=== PATIENT | male | born 1965 | race Caucasian/White ===

== ENCOUNTER 2024-09-03 23:03 | Inpatient (IN) | payer OTHER, SELFPAY ==
[2024-09-03 20:41] VITALS: BMI 27.0
[2024-09-03 20:43] VITALS: BP 135/75
[2024-09-03 21:09] LABS: % Basophils 0.7 % (0-2); % Eosinophils 0.1 % (0-6); % Immature Granulocytes 1.8 % (0-0.5); % Lymphocytes 11.4 % (20.5-51.1); % Monocytes 7.7 % (1.7-9.3); % Neutrophils 78.3 % (42.2-75.2); Absolute Basophils 0.2 10^3/uL (0-0.2); Absolute Immature Granulocytes 0.4 10^3/uL (0-0.05); Absolute Lymphocytes 2.6 10^3/uL (1.2-3.4); Absolute Monocytes 1.8 10^3/uL (0.1-0.6); Absolute Neutrophils 17.8 10^3/uL (1.4-6.5); Hematocrit 49.1 % (39.0-52.0); Hemoglobin 16.3 g/dL (13.0-18.0); Mean Corp Hgb Conc. 33.2 g/dL (33.0-37.0); Mean Corpuscular Hgb 30.7 pg (27.0-31.0); Mean Corpuscular Volume 92.5 fL (80.0-94.0); Mean Platelet Volume 10.8 fL (7.4-10.4); Nucleated Red Blood Cells % 0 % (-); Platelet Count 320 10^3/uL (130-400); Red Blood Cell Count 5.31 10^6/uL (4.70-6.10); Red Cell Dist. Width 12.5 % (11.5-14.5); White Blood Cell Count 22.8 10^3/uL (4.8-10.8)
[2024-09-03 21:12] LABS: Glucose - Point of Care 501 mg/dl (70-99)
[2024-09-03 21:21] VITALS: BP 139/79
[2024-09-03 21:22] LABS: ALT (SGPT) 21 U/L (0-50); AST (SGOT) 24 U/L (17-59); Alkaline Phosphatase 180 U/L (38-126); Blood Urea Nitrogen 19 mg/dl (9-20); Calcium 9.2 mg/dl (8.4-10.2); Carbon Dioxide < 5 mmol/L (22-30); Chloride 101 mmol/L (98-107); Glucose 462 mg/dl (70-99); Potassium 5.1 mmol/L (3.5-5.1); Sodium 133 mmol/L (135-145); Total Bilirubin 0.8 mg/dl (0.2-1.3); Total Protein 7.8 g/dl (6.3-8.2); eGFR 58.26
--- NOTE | 2024-09-03 21:27 | ED.GENMED ---
History of Present Illness
General
Chief Complaint: Blood Sugar Problem
Source: patient
Exam Limitations: none
Time Seen by Provider: 09/03/24 21:18
Nursing documentation reviewed up to this point in time: agreed with
History of Present Illness
History of Present Illness:
59-year-old male with a past medical history of insulin-dependent diabetes presents to the emergency room for evaluation of labored breathing and dizziness. Patient lives in [place] and flew here Monday for job orientation for a new
job. He says that he was feeling generally unwell shortly after his arrival and for this reason he says he has not been using his insulin since he arrived�has missed 2 days worth of insulin. He says his usual regimen is 22 units of long-acting
insulin at night and 12 units with meals. He says that this morning he woke up and he started to feel like his breathing was labored while he was in the shower; he says he went to lay down and he felt a bit better. In the afternoon his labored
breathing returned started to get worse. He says he has had some associated nausea. He denies any chest pain. He has had some mild right sided abdominal pain. Although he has nausea denies any vomiting. Denies any loose stools. He denies any
cough or fevers recently. He denies any other complaints. He does note that he has been admitted twice in the past for high blood sugars/DKA most recently was 2 years ago he says.
Review of Systems
Review of Systems
All Other Systems: ROS reviewed and negative except as documented in HPI and ROS
Constitutional: Reports fatigue; Denies fever or chills
EENT: Denies sore throat
Respiratory: Reports trouble breathing; Denies cough
Cardiac: Denies chest pain
ABD/GI: Reports abdominal pain and nausea; Denies vomiting or diarrhea
: Denies dysuria or flank pain
Musculoskeletal: Denies neck pain or back pain
Neurological: Reports dizzy; Denies headache
Phy Exam
Physical Exam
Physical Exam:
General: Patient is laying in bed, appears anxious
Head: Normocephalic, atraumatic
Eyes: Conjunctiva normal, sclera anicteric
Throat: Airway intact, dry mucous membranes
Neck: Trachea midline, supple without meningismus
Lungs: Clear to auscultation bilaterally, no wheezing, rales, rhonchi; patient does have tachypnea but no hypoxia
Heart: Tachycardia with regular rhythm, no murmurs, gallops, or rubs
Abd: Soft, non distended, mildly tender in the right abdomen-upper and lower abdomen; no masses, no peritoneal signs
Neuro: No gross deficits
Skin: no rash
Extremities: No edema in extremities, equal pulses in all extremities
Scores
Heart Failure Risk
Heart Failure Risk Score: Not Applicable
Heart Score for Chest Pain Patients
STEMI patient?: Not applicable
Withdrawal Assessment of Alcohol
Withdrawal Assessment Completed?: Not applicable
Course
Orders/Labs/Results
Orders:
Orders
09/03/24 20:49
Electrocardiogram (*1) Urgent
Reason for Study: Tachycardia
EKG- Treatment ONCE
09/03/24 20:58
B-Hydroxybutyrate Urgent
Comment: ADD ON
Complete Blood Count/With Diff Urgent
Comprehensive Metabolic Panel Urgent
09/03/24 21:07
Accucheck Once [Bedside Glucose Monitoring-ONCE] As Directed
09/03/24 21:15
Add On- LAB Urgent
Tests Added?: b hydroxybutrate
09/03/24 21:19
Urinalysis Reflex To Culture Urgent
09/03/24 21:20
Electrocardiogram (*1) Urgent
Reason for Study: Bradycardia / Tachycardia
0.9% Sodium Chloride 1000 ml [Nss] 1,000 ml IV BOLUS
Lactated Ringers [Lr] 1,000 ml IV BOLUS
09/03/24 21:21
CR Chest Portable - 1 View Urgent
Comment:
Reason For Exam: sob
Reason Study Needs to be Portable: Unable to Transport
09/03/24 21:25
CT Abd/pelvis W Iv Cont Urgent
Comment:
Reason For Exam: right sided abd pain, muliple SIRS, DKA
Basic Metabolic Panel Q2H
COVID-19 Antigen Urgent
Source: Nasal Swab
Lipase Urgent
Venous Blood Gas Urgent
%Oxygen/Room Air: 100
Blood Culture Q30M
WALE Source: Blood/Venous
Specimen Description:
Influenza A+B Rapid Molecular Urgent
WALE Source: Nasal Swab
Specimen Description:
09/03/24 21:37
Bedside Glucose- Treatment Q1H
IV Insert/Care/Rem.- Treatment PRN
Insulin Human Regular [Novolin R] 9 units IV NOW STA
09/03/24 21:43
Reg Insulin 100 Units/100 ml [Novolin R Insulin Infusion] 100 units in 100 ml IV NOW
09/03/24 21:57
Cefepime HCl [Maxipime] 1,000 mg IV NOW STA
Lactated Ringers [Lr] 1,000 ml IV BOLUS
09/03/24 22:10
Vancomycin [Vancocin] 2,000 mg 0.9% Sodium Chloride 500 ml [Nss] 500 ml IV NOW
09/03/24 22:15
Sodium Bicarbonate 100 meq Sterile Water For Inj [Sterile Water For Injection 500 ml] 400 ml IV ONCE
09/03/24 22:28
Admit/Transfer Patient As Directed
Co-Sign Provider:
Level of Care: Inpatient admission
Assign to:: ICU
Physician / Group: hospitalist
Diagnosis: DKA
Reason for Hospitalization: DKA
Expected length of stay greater than two midnights?: Yes
ELOS- Estimated Length of Stay in days: 2
I certify the patient meets the requirements for IP care: Yes
PRN Pain Medication Management As Directed
May give lesser potent ordered pain med per pt: Yes
preference::
Protocol:: Medication orders for pain may be administered in a
manner that supports deferring to patient preference
when the pt is:
- Requesting an ordered lesser potent pain medication.
Least to most potent pain medications are defined
as: acetaminophen < NSAID < tramadol < opioids
(morphine, oxycodone, hydromorphone).
- Requesting a lesser dose of the same medication IF
ORDERED.
- Requesting a less intrusive route of administration
if both routes are prescribed by the provider (PO <
IV).
09/03/24 22:30
Code Status As Directed
Resuscitation Status: Full Code
09/03/24 22:44
Electrocardiogram (*1) Urgent
Reason for Study: Tachycardia
EKG- Treatment ONCE
09/03/24 22:54
Venous Blood Gas Urgent
%Oxygen/Room Air: 100
Blood Culture Q30M
WALE Source: Blood/Venous
Specimen Description:
09/03/24 22:57
PTT Urgent
Prothrombin Time Urgent
09/03/24 22:59
Sterile Water [Sterile Water For Injection] 10 ml .ROUTE .STK-MED ONE
09/03/24 23:03
Heparin 4,000 units IV NOW STA
Pharmacy Request to Place See Dose Instructions PO NOW STA
Discontinue all Active Warfarin orders?: Yes
Nursing to Place Non Medication Order As Directed
Physician Order: PTT 6 hours after initial start of Heparin infusion
09/03/24 23:15
Heparin 58245 Units/250 ml 25,000 units in 250 ml IV PER PROTOCOL
Weight to be used for heparin protocol in kilograms (kg):: 90.3
Protocol:: Cardiac Tx/Acute Coronary
PTT Goal Range to be used:: PTT 73 to 111 seconds
Order type:: Initial
INITIAL Infusion Dose (UNITS/KG/hr) & then follow protocol:: 15 units/kg/hr
Infusion Dose in UNITS/hr & then follow protocol (UNITS/hr):: 1,350
INFUSION RATE in mL/hr & then follow protocol (mL/hr):: 13.5
PTT less than or equal to 64 seconds:: Increase rate by 200 units/hr (+ 2 mL/hr)
PTT 64.1 to 72.9 seconds:: Increase rate by 100 units/hr (+ 1 mL/hr)
PTT 73 to 111 seconds:: Target Range. No change in rate.
PTT 111.1 to 130.9 seconds:: Decrease rate by 100 units/hr (- 1 mL/hr)
PTT 131 to 199.9 seconds:: HOLD for 1 hr. Then decrease rate by 200 units/hr (- 2 mL/hr)
PTT greater than or equal to 200 seconds:: HOLD for 2 hrs & Notify Provider. Then decrease by 200 units/hr (-
2 mL/hr)
Lab follow-up:: Each change, PTT q6h until 2 consecutive are therapeutic. Then PTT
daily.
09/03/24 23:45
Basic Metabolic Panel Q2H
Pharmacy Request to Place See Dose Instructions IV DIRECTED
09/04/24 01:45
Basic Metabolic Panel Q2H
Abnormal Lab Results
09/03/24 09/03/24 09/03/24
20:58 21:11 21:25
WBC 22.8 H 10^3/uL
(4.8-10.8)
MPV 10.8 H fL
(7.4-10.4)
Abs Immat Gran (auto) 0.4 H 10^3/uL
(0-0.05)
Absolute Neuts (auto) 17.8 H 10^3/uL
(1.4-6.5)
Absolute Monos (auto) 1.8 H 10^3/uL
(0.1-0.6)
Immature Gran % 1.8 H %
(0-0.5)
Neutrophils % 78.3 H %
(42.2-75.2)
Lymphocytes % 11.4 L %
(20.5-51.1)
VBG pH < 6.80 L*
(7.32-7.43)
VBG pCO2 30 L mmHg
(35-48)
VBG pO2 58 H mmHg
(30-50)
VBG HCO3
Sodium 133 L mmol/L 132 L mmol/L
(135-145) (135-145)
Carbon Dioxide < 5 L* mmol/L < 5 L* mmol/L
(22-30) (22-30)
Creatinine 1.4 H mg/dL 1.4 H mg/dL
(0.7-1.3) (0.7-1.3)
Glucose 462 H* mg/dl 505 H* mg/dl
(70-99) (70-99)
Alkaline Phosphatase 180 H U/L
(38-126)
Lipase 315 H U/L
(23-300)
B-Hydroxybutyrate > 9.0 H mmol/L
(0.02-0.27)
POC Glucose 501 H* mg/dl
(70-99)
09/03/24 09/03/24 09/03/24
21:48 22:54 22:57
WBC
MPV
Abs Immat Gran (auto)
Absolute Neuts (auto)
Absolute Monos (auto)
Immature Gran %
Neutrophils %
Lymphocytes %
VBG pH 6.82 L*
(7.32-7.43)
VBG pCO2 27 L mmHg
(35-48)
VBG pO2 62 H mmHg
(30-50)
VBG HCO3 4.4 L mmol/L
(22-27)
Sodium
Carbon Dioxide
Creatinine
Glucose
Alkaline Phosphatase
Lipase
B-Hydroxybutyrate
POC Glucose 502 H* mg/dl 420 H mg/dl
(70-99) (70-99)
09/03/24 20:58
09/03/24 21:25
Vital Signs
Initial and Last Documented VS:
Initial Vital Signs
Temp Pulse Resp BP Pulse Ox
36.4 C 114 30 135/75 100
09/03/24 20:43 09/03/24 20:43 09/03/24 20:43 09/03/24 20:43 09/03/24 20:43
Last Documented Vital Signs
Temp Pulse Resp BP Pulse Ox
36.4 C 107 23 130/73 100
09/03/24 20:43 09/03/24 22:00 09/03/24 22:00 09/03/24 22:00 09/03/24 22:00
MDM/Problems Addressed
Differential Diagnosis Includes:
Concern for DKA�could be secondary to noncompliance or triggered by infection such as pneumonia, UTI, intra-abdominal infection, viral syndrome
MDM/Problems Addressed:
59-year-old male presents for labored breathing and dizziness in the setting of recent malaise for the past few days. He has been noncompliant with his insulin for the past 2 days but he says that he was noncompliant because he was feeling unwell.
He arrives to us tachypneic and tachycardic but normal pulse ox, afebrile, normal blood pressure. His Accu-Chek was greater than 500 on arrival. Brought back to room will place an IV send labs including a CBC and a CMP, lactate and blood cultures.
Check urinalysis. Will check beta hydroxybutyrate, venous blood gas. Check an EKG. Check a chest x-ray. Will send for a CT abdomen pelvis. Will provide IV fluids. Monitor closely reassess after the above.
Initial labs reviewed: CBC does show leukocytosis of 22.8 which could be from hemoconcentration but we will need to follow his infectious workup. Given acuity of illness we will cover with empiric antibiotics. His CMP shows anion gap metabolic
acidosis�anion gap is 27; potassium 5.1. Glucose 462. Will provide insulin bolus and start infusion�with potassium greater than 5 no potassium supplementation needed at this point but will need to follow closely. I did review his chest x-ray
shows no acute disease on my review. EKG shows sinus tachycardia. Plan for admission pending rest of ER workup.
Patient's venous blood gas came back with significant acidosis pH less than 6.8�will provide sodium bicarbonate given this finding. I did discuss the case with the hospitalist with some workup pending to facilitate admission for this critical ICU
patient.
Patient noted to have some increased tachycardia and heart rate increased to 130s appears irregular on the monitor. Repeat EKG confirms atrial fibrillation. Patient denies known history of A-fib or any other cardiac issues. Discussed with
hospitalist at bedside�heart rate only mildly elevated and given his hypovolemia hesitant to be aggressive with rate control for fear of dropping blood pressure. Will allow rate to ride on the high side for now hold on rate control medications.
Will plan for heparinization pending CT results.
CT reviewed no acute pathology noted. Started heparin infusion for atrial fibrillation. Hospitalist updated. Admitted to ICU.
Chronic conditions affecting care:
Insulin-dependent diabetes
Acute Exacerbation and/or Progression of Chronic Illness:
Acute hyperglycemia treated as above
Acute Exacerbation and/or Progression of Chronic Illness: DM
*Radiology
Radiology exam reviewed: preliminary read by ED provider and radiology read reviewed
*Pulse Oximetry
Patient hypoxic: no
*EKG
Interpreted by ED Provider?: Yes
Heart Rate: 112
Rate: tachycardiac
Rhythm: sinus and sinus tachycardia
Luck: normal axis
Interval: normal interval
QRS Pattern: low voltage
Ischemia: non-specific ST changes
*Critical Care Note
Total Time (30-74mins, 75-104mins- exclusive of procedures): 47
comment:
Critical care statement: A total of 47 minutes of critical care time was provided for this patient. This includes management of unstable vital signs, evaluation of the patient at bedside, frequent reassessment, discussion with
consultants/hospitalist, and review of pertinent medical records. This time was separate from time utilized to perform any aforementioned documented procedures
Data Reviewed
Source: patient
Patient Management
Discussion with other providers: Hospitalist (Discussed with hospitalist)
Escalation/DeEscalation of care consider admission/obs:
Admission indicated
ED Attending Note
-
Portions of this chart may have been created with voice recognition software.� Occasional wrong word or��sound alike� substitutions may have occurred due to the inherent limitations of voice recognition software.
Discharge Plan
Departure
Patient Disposition: Admit
Date of Disposition: 09/03/24
Time of Disposition: 21:58
Admit to doctor: Jennifer
Presentation/result/management discussed w/ accepting MD/DO: Hospitalist
Discharge Problem:
Diabetic ketoacidosis, Atrial fibrillation with RVR
Interventions
Interventions:
*Risk Screen - Suicide Last Done: 09/03/24 20:48
*General Assessment Last Done: 09/03/24 20:48
*Neglect/Abuse Screening Last Done: 09/03/24 20:48
[2024-09-03] MEDS: NSS 1000 IV (21:35)
[2024-09-03] MEDS: LR 1000 IV ×2 (21:36→23:03)
[2024-09-03 21:47] LABS: Venous Blood Gas O2 Sat % 85.9 %; Venous Blood Gas pCO2 30 mmHg (35-48); Venous Blood Gas pO2 58 mmHg (30-50)
[2024-09-03] MEDS: NOVOLIN R 9 UNITS IV (21:47)
[2024-09-03 21:49] LABS: Glucose - Point of Care 502 mg/dl (70-99)
[2024-09-03 21:51] LABS: Venous Blood Gas pH < 6.80 (7.32-7.43)
[2024-09-03 21:56] LABS: Blood Urea Nitrogen 20 mg/dl (9-20); Calcium 8.7 mg/dl (8.4-10.2); Carbon Dioxide < 5 mmol/L (22-30); Chloride 99 mmol/L (98-107); Estimated Creatinine Clearance 63 ml/min; Glucose 505 mg/dl (70-99); Lipase 315 U/L (23-300); Sodium 132 mmol/L (135-145); eGFR 58.26
[2024-09-03] MEDS: NOVOLIN R INSULIN INFUSION 100 IV (21:57)
[2024-09-03 22:00] VITALS: BP 130/73
[2024-09-03 22:00] LABS: COVID-19 Antigen Negative (Negative)
--- NOTE | 2024-09-03 22:12 | HPS.HSE ---
Family Physician
-
Family Physician:
Chief Complaint
-
There for breathing, DKA
History of Present Illness
This is a 59-year-old male with past medical history of insulin-dependent diabetes, bipolar, anxiety, unknown others presenting to the emergency department for abnormal blood sugar and breathing difficulty.
Patient is visiting [place] for a work conference. He apparently arrived 2 days ago on Monday. On arrival he felt somewhat ill and had some malaise and some nausea. He had decreased appetite and ambulate eating. So he decided not to take
his insulin. He currently cannot tell me exactly the amount of insulin he uses but he is on evening long-acting some daytime insulin. He has not taken his insulin since Monday due to with his ongoing malaise. Last night he felt very weak and
tired he went to sleep he felt slightly better. When he woke up this morning if he felt dizzy and lightheaded when he attempted to shower. He noticed that he was having heavy breathing and he decided to come to the emergency department.
Take did not have any zeke fevers or chills. He said he was not having diarrhea now but apparently had an episode of diarrhea previously. He has no cough. He denies having any headache. Denies having any urinary symptoms. He was complaining of
some flank pain but denies dysuria.
On arrival in the emergency department he was tachycardic to the 110s, afebrile, blood pressure was 130/70 and was satting 100% on room air. ECG shows sinus tachycardia without any acute ST or T wave changes. White count was 22.8 hemoglobin was 16
and platelet count was normal. Electrolytes notable for a sodium of 132 potassium 5.0. Bicarb was less than 5. Creatinine was 1.4 BUN 20. His glucose was 505. Anion gap was 27, pH was 6.8 with a pCO2 of 30. Lipase was slightly elevated at 315.
X-ray without infiltrates. CTAP pending.
IV fluids including bicarb 100 meq, LR 1L. NS 1 L.
Cefepime and Vanc empirically
Medical History
Past Medical History
Past Medical History: Reports IDDM and Psychiatric (Bipolar disorder)
Past Surgical History: Reports None
Social History
Tobacco: Non-smoker
Alcohol: Occasional
Drug: None
Personal:
Living: Other (visiting)
Employment: Employed
Family History
Family History: Not pertinent
Allergies / Home Medications
Allergies reflects when Allergies were last updated in [facility].
Home Medications with original date entered in [facility]
Allergy/Medication List:
Allergies
Allergy/AdvReac Type Severity Reaction Status Date / Time
amoxicillin Allergy Swelling Verified 09/03/24 20:49
Penicillins Allergy Swelling Verified 09/03/24 20:49
Unknown medications at this time
Review of Systems
-
History Source: Patient
Constitutional: Reports Fatigue
EENT: Reports No Symptoms
Respiratory: Reports Trouble Breathing
Cardiac: Reports No Symptoms
Abdomen/GI: Reports Abdominal Pain
: Reports Flank Pain; Denies Dysuria, Frequency, Incontinence, Difficulty Voiding or Urgency
Musculoskeletal: Reports Muscle Pain
Skin: Reports No Symptoms
Neurological: Reports No Symptoms
Endocrine: Reports No Symptoms
Hematologic/Lymphatic: Reports No Symptoms
Psych: Reports No Symptoms
Physical Exam
Vital Signs
Vital Signs
Temp Pulse Resp BP Pulse Ox
97.6 F 114 30 135/75 100
09/03/24 20:43 09/03/24 20:43 09/03/24 20:43 09/03/24 20:43 09/03/24 20:43
Physical Exam
General: Well Developed, Well Nourished and Appears in Distress
HEENT: NormoCephalic, Anicteric, Moist mucous membranes and Atraumatic
Respiratory: Clear and Accessory Resp Muscle Use
Cardiac: S1/S2 and Tachycardia
Breast: Deferred by me
GI: Soft and Non Distended (firm)
Rectal: Deferred by Provider
Genito-urinary: Deferred by me
Musculoskeletal: No Clubbing, No Cyanosis and No Edema
Skin: Warm
Neuro: AO x 3
Hematologic/Lymphatic: No Lymphadenopathy
Psych: Agitated
Laboratory Results
-
09/03/24 20:58
Laboratory Results
Total Bilirubin 0.8 mg/dl (0.2-1.3) 09/03/24 20:58
AST 24 U/L (17-59) 09/03/24 20:58
ALT 21 U/L (0-50) 09/03/24 20:58
Alkaline Phosphatase 180 U/L (38-126) H 09/03/24 20:58
Lipase 315 U/L (23-300) H 09/03/24 21:25
Data Reviewed
-
Diagnostic Radiology: Image Personally Visualized and interpreted
Medical Tests (Nuc Med, Echo, EKG etc): Image Personally Visualized and interpreted
Lab Data: Labs Reviewed by me
Old Records: Reviewed
Impression/Plan
-
IMPRESSION:
59 y.o Male with past medical history of insulin-dependent diabetes who comes into the emergency department in DKA. Has missed 2 days of insulin. Has not have anything to eat in at least 24 hours. He is dehydrated tachypneic and tachycardic.
X-ray is clear. COVID and influenza are negative. UA is pending. CT of the abdomen pelvis is pending. He has leukocytosis which is currently unexplained by any infectious source. Suspect DKA due to lack of insulin as the primary etiology.
PLAN:
1. DKA - Severe DKA, AG 27, bicarb undetectable, Glucose 500. bHB pending. U/A pending. Dehydrated. K 5.1. pH 6.8.
- admit to icu
- s/p LR/NS and bicarb in ED
- insulin gtt protocoll
- IV NS at 200 ml/hr + 20 K
- blood glucose q 1, bmp q 4
- repeat gas in 2 hours
- NPO for now
2. Leukocytosis - Unclear source. No fever. Clear Xray. No localizing symptoms.
- blood cx
- u/a urine cx
- ct/a/p pending
- check mrsa swab, [place] urinary ag
- continue cefepime for now
3. BIPOLAR
- will follow up with home meds when patient more stabilized
4. Renal insufficiency. Cr 1.4. - likely prerenal or even at baseline, follow cr for now
5. Lipase elevation - Possible pancreatitis. No etoh
- npo for now
- CT a/p pending
- if stones, will change abx to zosyn for now
6. AFIB RVR - Went into afib after arrival, no prior h/o afib
- will give fluids and treat underlying CKD
- hold diltiazem for now unless rates in the 140s persistently
- with diabetes and htn, likely meets ac criteria - will start heparin for now
- echo in am
- cardiology consult
DVT PPX - lovenox sq
Code status - full code
[2024-09-03 22:25] LABS: B-Hydroxybutyrate > 9.0 mmol/L (0.02-0.27)
[2024-09-03 22:33] VITALS: BP 125/83
[2024-09-03] MEDS: VANCOCIN 540 MG IV (22:39)
[2024-09-03 22:58] LABS: Glucose - Point of Care 420 mg/dl (70-99)
[2024-09-03 23:01] VITALS: BP 130/72
[2024-09-03] MEDS: MAXIPIME 1000 MG IV (23:01)
[2024-09-03 23:02] LABS: Venous Blood Gas B.E. -29.4 mmol/L (-4 to +4); Venous Blood Gas HCO3 4.4 mmol/L (22-27); Venous Blood Gas pCO2 27 mmHg (35-48); Venous Blood Gas pO2 62 mmHg (30-50)
[2024-09-03 23:05] LABS: Venous Blood Gas pH 6.82 (7.32-7.43)
[2024-09-03] MEDS: SODIUM BICARBONATE 500 MEQ IV (23:10)
[2024-09-03 23:14] LABS: INR 1.19; PT 15.4 Sec (11.4-14.6)
[2024-09-03 23:15] LABS: APTT 32.4 Sec (23.4-35.0)
[2024-09-03 23:51] LABS: Troponin I < 0.012 ng/ml
[2024-09-03 23:52] LABS: Glucose - Point of Care 297 mg/dl (70-99)
[2024-09-04] VITALS (25 sets, daily range): BP systolic 109–155; BP diastolic 62–90; BMI 26.8
[2024-09-04] MEDS: HEPARIN 4000 UNITS IV (00:15)
[2024-09-04] MEDS: HEPARIN 25000 UNITS/250 ML IV (00:15)
[2024-09-04 00:43] LABS: Blood Urea Nitrogen 21 mg/dl (9-20); Calcium 6.6 mg/dl (8.4-10.2); Carbon Dioxide 19 mmol/L (22-30); Chloride 96 mmol/L (98-107); Estimated Creatinine Clearance 80 ml/min; Glucose 216 mg/dl (70-99); Potassium 3.8 mmol/L (3.5-5.1); Sodium 135 mmol/L (135-145); eGFR > 60.00
[2024-09-04 00:58] LABS: Glucose - Point of Care 137 mg/dl (70-99)
[2024-09-04] MEDS: D5/0.45%NSS with KCL 20 MEQ 1000 IV ×5 (01:53→23:48)
[2024-09-04] MEDS: CALCIUM GLUCONATE 100 IV ×2 (01:55→02:55)
[2024-09-04 02:02] LABS: Glucose - Point of Care 95 mg/dl (70-99)
[2024-09-04 02:11] LABS: Urine Albumin 3+ (Neg - Trace); Urine Bilirubin Negative (Negative); Urine Character Clear (Clear); Urine Color Yellow; Urine Glucose 4+ (Negative); Urine Ketone 3+ (Negative); Urine Leukocyte Negative (Negative); Urine Nitrite Negative (Negative); Urine Occult Blood 3+ (Negative); Urine Specific Gravity 1.025 (<1.030); Urine Urobilinogen Negative (Neg - 1+)
[2024-09-04] MEDS: CARDIZEM 125 IV ×2 (02:13→10:18)
[2024-09-04 02:35] LABS: Urine Amorphous Seen; Urine Granular Cast >15 /LPF (0); Urine Mucus Few; Urine Squamous Cell >30 /LPF (Few)
[2024-09-04 02:36] LABS: Urine Bacteria Many (Negative); Urine Red Blood Cell 0-2 /HPF (0-2)
[2024-09-04 02:49] LABS: Total Cholesterol 251 mg/dl (50-199)
[2024-09-04 03:00] LABS: ALT (SGPT) 16 U/L (0-50); AST (SGOT) 21 U/L (17-59); Albumin 4.1 g/dl (3.5-5.0); Alkaline Phosphatase 146 U/L (38-126); Blood Urea Nitrogen 21 mg/dl (9-20); Calcium 7.8 mg/dl (8.4-10.2); Carbon Dioxide < 5 mmol/L (22-30); Chloride 108 mmol/L (98-107); Direct Bilirubin 0.4 mg/dl (0.0-0.4); Estimated Creatinine Clearance 68 ml/min; Glucose 97 mg/dl (70-99); HDL Cholesterol 94 mg/dl; LDL Cholesterol, Calculated 106 mg/dl; Lipase 670 U/L (23-300); Potassium 4.1 mmol/L (3.5-5.1); Sodium 139 mmol/L (135-145); Total Bilirubin 0.5 mg/dl (0.2-1.3); Total Protein 6.9 g/dl (6.3-8.2); Triglyceride 258 mg/dl (10-149); Very Low Density Lipoprotein 51 mg/dl (0-30); eGFR > 60.00
[2024-09-04 03:13] LABS: Glucose - Point of Care 83 mg/dl (70-99)
--- NOTE | 2024-09-04 03:17 | PTCARENOTE ---
Received pt from ED RN. Pt is AAOx3. Sinus tach w/ PVCs on the monitor, pt c/o dizziness which he has had for a couple years. On RA O2 sat 100%, lungs clear. Pt states he has a poor appetite. Insulin, Heparin, Cardizem and IVF infusing (see
worklist). 2nd Ca rider hanging (see MAR). CHG bath provided. Pt is laying in bed with call marks in reach.
[2024-09-04 03:20] LABS: TSH Reflex To Free T4 1.09 uIU/ml (0.47-4.68)
[2024-09-04 04:10] LABS: Glucose - Point of Care 90 mg/dl (70-99)
[2024-09-04 04:21] LABS: Venous Blood Gas B.E. -22.2 mmol/L (-4 to +4); Venous Blood Gas HCO3 5.8 mmol/L (22-27); Venous Blood Gas O2 Sat % 99.2 %; Venous Blood Gas pCO2 19 mmHg (35-48); Venous Blood Gas pO2 100 mmHg (30-50)
[2024-09-04 04:23] LABS: Venous Blood Gas O2 Therapy ROOM AIR
[2024-09-04 04:24] LABS: Venous Blood Gas pH 7.09 (7.32-7.43)
[2024-09-04 05:06] LABS: Glucose - Point of Care 115 mg/dl (70-99)
[2024-09-04 05:13] LABS: Blood Urea Nitrogen 20 mg/dl (9-20); Calcium 8.6 mg/dl (8.4-10.2); Carbon Dioxide < 5 mmol/L (22-30); Chloride 109 mmol/L (98-107); Estimated Creatinine Clearance 74 ml/min; Glucose 73 mg/dl (70-99); Sodium 133 mmol/L (135-145); eGFR > 60.00
[2024-09-04 05:17] LABS: Hematocrit 36.8 % (39.0-52.0); Mean Corp Hgb Conc. 35.3 g/dL (33.0-37.0); Mean Corpuscular Hgb 31.3 pg (27.0-31.0); Mean Corpuscular Volume 88.5 fL (80.0-94.0); Mean Platelet Volume 10.8 fL (7.4-10.4); Platelet Count 197 10^3/uL (130-400); Red Blood Cell Count 4.16 10^6/uL (4.70-6.10); Red Cell Dist. Width 12.4 % (11.5-14.5); White Blood Cell Count 20.7 10^3/uL (4.8-10.8)
[2024-09-04] MEDS: STERILE WATER FOR INJECTION 10 ML IV ×4 (05:58→23:51)
[2024-09-04] MEDS: MAXIPIME 1000 MG IV ×4 (05:58→23:51)
[2024-09-04 06:06] LABS: Glucose - Point of Care 169 mg/dl (70-99)
[2024-09-04 06:44] LABS: APTT > 200 Sec (23.4-35.0)
[2024-09-04 06:58] LABS: Glucose - Point of Care 207 mg/dl (70-99)
[2024-09-04] MEDS: NSS (PRESERVATIVE FREE) 0.25 ML IV (08:20)
[2024-09-04] MEDS: ATIVAN 0.5 MG IV (08:21)
[2024-09-04 08:44] LABS: Glucose - Point of Care 257 mg/dl (70-99)
[2024-09-04 08:55] LABS: Blood Urea Nitrogen 19 mg/dl (9-20); Calcium 8.3 mg/dl (8.4-10.2); Carbon Dioxide < 5 mmol/L (22-30); Chloride 106 mmol/L (98-107); Estimated Creatinine Clearance 74 ml/min; Glucose 257 mg/dl (70-99); Potassium 4.9 mmol/L (3.5-5.1); Sodium 132 mmol/L (135-145); eGFR > 60.00
--- NOTE | 2024-09-04 09:00 | PTCARENOTE ---
Rec'd pt at 0800 resting in bed. Pt is drowsy but is easily arousable to verbal stimuli and is oriented. Denies pain or discomfort. HUNT. Denies headache or dizzness. Pt was initially calm and drowsy but then around 0815 used the urinal to void and
after become very restless. Hyperventilating and felt like he was having a 'panic attack' stated thats what happened yesterday when he called 911. Medicated at 0821 with Ativan 0.5 mg IV and currently is more restful. HR at the time up to 120 but
currently back down to 106. Skin is pale pink wm and dry- did get sl diaphoretic with his episode but then better. Respirs- at rest are non-labored but when he is wakeful tends to breathe 'deeper' like he is trying to catch his breath. Sats on RA
not below 99-100%. BS are clear. Monitor SR-ST 90-108 range. Remains on IV Cardizem via LAC IV site at 15 mg/hr. IV Heparin had been off for elevated PTT and currently at 0900 restarted at 1150 units/hr per protocol via RAC IV site. + pulses. No
edema. Abd is soft with + BS. Denies nausea. Admits to feeling very thirsty. Given a sip of water and few ice chips per orders. Pt voiding yellow urine in the urinal. Pt remains on IV Insulin current BS 318 and Insulin gtt at 5 units/hr via R FA IV
site. Pt able to reposition himself. Updated on plan of care. Call marks in reach. Labs sent at [address] Hilraio TT about labs.
[2024-09-04 09:15] LABS: Glucose - Point of Care 318 mg/dl (70-99)
[2024-09-04] MEDS: SODIUM BICARBONATE 50 MEQ IV ×2 (09:49→18:02)
--- NOTE | 2024-09-04 09:50 | PTCARENOTE ---
1 amp of NaHCO3 given per md order. No other changes. Pt resting.
[2024-09-04 10:08] LABS: Glucose - Point of Care 304 mg/dl (70-99)
--- NOTE | 2024-09-04 10:08 | PTCARENOTE ---
Pt resting. Respirs become more labored with stimulation but sats on RA are 100%. Currently Insulin gtt at 5 units/hr for BS 304. ECHO being done
--- NOTE | 2024-09-04 10:24 | CON.CAR ---
Addendum entered and electronically signed by Rashaad Byrne DO 09/04/24 14:35:
I saw and examined the patient.
The Director Of Regulatory Affairs's note was reviewed and I agree with the note.
Comment:
Plan:
Paroxysmal aFib now in sinus.
Can wean off IV Cardizem
CHADSVASC score of 1. Currently on IV Heparin.
Discussed eventual rhythm control with PVI for recurrent afib in the future.
Echo is pending.
Trop negative.
Resume Crestor once no longer NPO
Reviewed with nursing
Family has been updated.
HPI: Patient came to [facility] yesterday with dizziness and was admitted with DKA and cardiology is now consulted for Afib. 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 Patient was not feeling well after his flight and didn't eat so
he didn't dose his insulin and this went on for 2 days. Patient felt dizzy and SOB at his hotel yesterday and so he came to [facility] and was hyperglycemic and labs abnormal and concerning for DKA. Patient now admitted to ICU on insulin gtt. Cardiology
consulted for paroxysmal Afib with RVR that was noticed in the ER around 2100 last night. Initial ECG on admission was SR, but HR then noted to increase and ECG rechecked and looked like Afib. Patient started on Cardizem gtt and spontaneously
converted to SR within hours. Remains in SR/ST now. No palpitations. No chest pain. Still SOB. Amp of bicarb given earlier. No known h/o Afib. No previous cardiac testing.
Original Note:
Consultation
Consultation Request
Date/Time Consultation Requested: 09/04/24 at 0123
Date/Time Consultation Performed: 09/04/24 at 1026
Requesting Provider: Dr. Olvera
Performing Provider: Dr. Byrne
Reason for Consultation: Newly diagnosed paroxysmal Afib
Medical History
-
History of Present Illness:
Patient came to [facility] yesterday with dizziness and was admitted with DKA and cardiology is now consulted for Afib. 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 Patient was not feeling well after his flight and didn't eat so he
didn't dose his insulin and this went on for 2 days. Patient felt dizzy and SOB at his hotel yesterday and so he came to [facility] and was hyperglycemic and labs abnormal and concerning for DKA. Patient now admitted to ICU on insulin gtt. Cardiology
consulted for paroxysmal Afib with RVR that was noticed in the ER around 2100 last night. Initial ECG on admission was SR, but HR then noted to increase and ECG rechecked and looked like Afib. Patient started on Cardizem gtt and spontaneously
converted to SR within hours. Remains in SR/ST now. No palpitations. No chest pain. Still SOB. Amp of bicarb given earlier. No known h/o Afib. No previous cardiac testing.
PMH:
DM 2
h/o DKA
Bipolar disorder
Hyperlipidemia
Past Medical History
Past Medical History: Other (in HPI)
Past Surgical History: None
Social History
Tobacco: Non-Smoker
Alcohol: None
Drug: None
Personal:
Living: With Family
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
Family History
Family History: Diabetes
Allergies / Home Medications
Allergy/AdvReac Type Severity Reaction Status Date / Time
amoxicillin Allergy Swelling Verified 09/03/24 20:49
Penicillins Allergy Swelling Verified 09/03/24 20:49
�Medication �Instructions �Recorded �Confirmed �Type
bupropion HCl 150 mg 24 hr tablet, 150 mg PO DAILY 09/03/24 09/03/24 History
extended release
insulin degludec 200 unit/mL (3 28 unit SC 09/03/24 History
mL) subcutaneous pen (Tresiba
FlexTouch U-200 insulin)
insulin lispro 100 unit/mL 8 unit SC TID 09/03/24 09/03/24 History
subcutaneous pen
metformin 1,000 mg tablet 1,000 mg PO BIDWMEAL 09/03/24 09/03/24 History
multivitamin 1 tab PO DAILY 09/03/24 09/03/24 History
omega-3 fatty acids-fish oil 340 cap 09/03/24 History
mg-1,000 mg capsule
risperidone 0.5 mg tablet 0.5 mg PO DAILY 09/03/24 09/03/24 History
rosuvastatin 10 mg tablet 10 mg PO DAILY 09/03/24 09/03/24 History
sildenafil 50 mg tablet 50 mg PO DAILY PRN sex 09/03/24 09/03/24 History
venlafaxine 150 mg 150 mg PO DAILY 09/03/24 09/03/24 History
capsule,extended release 24 hr
Review of Systems
-
History Source: Patient and Family ( by phone provided all PMH, SH, FH)
All other systems: Negative unless noted
Physical Exam
Vital Signs
Temp Pulse Resp BP Pulse Ox
97.5 F 108 19 144/74 100
09/04/24 08:02 09/04/24 10:00 09/04/24 10:00 09/04/24 10:00 09/04/24 10:00
GEN: NAD, AAOx3
HEENT: EOMI, MMM
LUNGS: RA. Tachypneic. CTA B/L, no wheeze
CV: SR on tele. Reg, S1/S2, no murmur
ABD: soft, BS+, NT, ND
EXT: No clubbing, cyanosis, lesions or edema B/L
NEURO: Gross non-focal
SKIN: Warm, dry and pink. No rash
Lab Results
09/04/24 04:12
Troponin I < 0.012 ng/ml 09/03/24 22:54
Impression / Plan
-
PCP: None local
Cardiology: None
Impression:
Admitted with DKA 09/03/24
Newly diagnosed Afib with RVR
spontaneously converted to SR
Metabolic acidosis
Leukocytosis
Hyponatremia
Hypocalcemia
Elevated lipase
DM 2
h/o DKA
Bipolar disorder
Hyperlipidemia
Echo 09/04/2024: Preliminary report, EF 60 to 65%, WMA analysis limited by image quality, no MR, no /AR, no TR, normal pericardium without effusion
Plan:
-Patient came to [facility] yesterday with dizziness and was admitted with DKA and cardiology is now consulted for Afib. 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 Patient was not feeling well after his flight and didn't eat so he
didn't dose his insulin and this went on for 2 days. Patient felt dizzy and SOB at his hotel yesterday and so he came to [facility] and was hyperglycemic and labs abnormal and concerning for DKA. Patient now admitted to ICU on insulin gtt. Cardiology
consulted for paroxysmal Afib with RVR that was noticed in the ER around 2100 last night. Initial ECG on admission was SR, but HR then noted to increase and ECG rechecked and looked like Afib. Patient started on Cardizem gtt and spontaneously
converted to SR within hours. Remains in SR/ST now. No palpitations. No chest pain. Still SOB. Amp of bicarb given earlier. No known h/o Afib. No previous cardiac testing.
-ECG reviewed by me from admission looks like sinus tachycardia without acute ST changes. ECG later last night looks like Afib with RVR.
-Called and talked with patient's , Judith, for 9:43 min. Judith reports this is not patient's first DKA admission, had another admission at home in the last year. HgbA1c 15% and reports patient has had better control in the past, but recently
sugars have not been controlled. Reviewed Afib diagnosis, pathophysiology and prognosis. Reviewed rate control and OAC.
-Cardizem gtt running at 15 mg/hr in SR. Titration parameters entered by me to wean gtt off today.
-Will add Cardizem CD 120 mg daily for rate control when taking POs.
-Heparin gtt running. [id number] is 1 for h/o DM. No plans for OAC and from a cardiac standpoint the heparin gtt can be stopped.
-Preliminary echo report reviewed by me.
-No chest pain and Troponin undetectable.
-LDL 106 and outpatient dose of Crestor 10 mg daily is on hold while NPO
--- NOTE | 2024-09-04 10:58 | PN.DE.MGMTRT ---
Insulin Management
- -
09/04/2024 Diabetes Management Consult
Patient admitted 09/03 with c/o nausea, dizziness, labored breathing; found to be in DKA. PMH diabetes, bipolar, anxiety. Prior to admission was ordered Tresiba 28 units @ hs and humalog 8 units TID with metformin 1000 BID. A1C on admission 15%, cr
1.2, eGFR >60.
Patient sleeping, awakened easily, states he is here from [place] for new job training, has not felt well for the past few days so did not take any insulin.
On admission glucose 462/505, GAP 27.
Serial labs indicate GAP still 26. Glucose up to 304, DKA insulin infusion continues at 5 units per hour.
Will continue to follow until GAP closed then transition to home regimen. With A1C of 15 will need adjustments to regimen.
Discussed with nurse.
Diabetes History
- -
Type of Diabetes: 1
Pre-Admission Diabetes Regimen
09/03/24 09/03/24 09/03/24
20:58 21:25 23:55
Creatinine 1.4 H 1.4 H 1.1
09/04/24 09/04/24 09/04/24
01:45 02:03 04:00
Creatinine Cancelled 1.3 Cancelled
09/04/24 09/04/24
04:12 08:06
Creatinine 1.2 1.2
Lab Results
Hemoglobin A1c 15.0 % (4.0-5.6) H 09/04/24 04:12
Insulin Pump Settings
IP Diabetes Regimen
09/03/24 09/03/24 09/03/24
20:58 21:11 21:25
Glucose 462 H* 505 H*
POC Glucose 501 H*
09/03/24 09/03/24 09/03/24
21:48 22:57 23:52
Glucose
POC Glucose 502 H* 420 H 297 H
09/03/24 09/04/24 09/04/24
23:55 00:57 01:45
Glucose 216 H Cancelled
POC Glucose 137 H
09/04/24 09/04/24 09/04/24
02:00 02:03 03:01
Glucose 97
POC Glucose 95 83
09/04/24 09/04/24 09/04/24
03:58 04:00 04:12
Glucose Cancelled 73
POC Glucose 90
09/04/24 09/04/24 09/04/24
04:53 05:53 06:45
Glucose
POC Glucose 115 H 169 H 207 H
09/04/24 09/04/24 09/04/24
08:03 08:06 09:04
Glucose 257 H
POC Glucose 257 H 318 H
09/04/24
09:57
Glucose
POC Glucose 304 H
Meal type: Breakfast
Patient Education
--- NOTE | 2024-09-04 11:10 | W.CHA2DS2VAS ---
[id number] Score
Score
Age in Years (65=0, 65-74=1, >/=75=2): <65
Sex (Female=+1): Male
Congestive Heart Failure History (Yes=+1): No
Hypertension History (Yes=+1): No
Stroke/TIA/Thromboembolism History (Yes=+2): No
Vascular Disease History (Yes=+1): No
Diabetes Mellitus (Yes=+1): Yes
Score >/=2 is otherwise an anticoagulation candidate: 1
[2024-09-04] MEDS: NSS with KCL 20 MEQ 1000 IV (11:15)
[2024-09-04 11:18] LABS: Glucose - Point of Care 309 mg/dl (70-99)
--- NOTE | 2024-09-04 11:25 | PTCARENOTE ---
Cardiology in to see pt. Pts HR 90-100 SR-ST with isolated PVC's. Per Dr. Hilario ok with HR <115. Will wean Cardizem gtt- Decreased to 10 mg/hr at 1100- with HR of 96. Will wean as tolerated. IV fluids changed to NS + 20 meq KCl at 150 ml/hr. via
LAC IV site.
--- NOTE | 2024-09-04 11:43 | CON.INTV ---
Addendum entered and electronically signed by Gustavo Cordoba MD 09/04/24 13:52:
See note
Original Note:
Consultation
Consultation Request
Date/Time Consultation Requested: 09/04/2024
Date/Time Consultation Performed: 09/04/2024
Requesting Provider: Elle Olvera
Performing Provider: Gustavo Cordoba
Reason for Consultation: DKA
Medical History
-
Chief Complaint: Lethargic and nausea
History of Present Illness:
Patient is a 59-year-old male, resident of [place], here in [place] for a business conference, past medical history of type 2 diabetes mellitus, Anxiety, and bipolar disorder. According to the patient, he reached [place] on Monday,
he felt very tired, weak and lethargic so he decided to not take his insulin as he had suppressed appetite. He continued to feel more lethargic, very weak and did not eat anything since Monday afternoon and then he started to develop difficulty in
breathing and he had to breathe very forcefully. In addition he had cough with a small amount of whitish mucus. He presented to the ER with heavy breathing. Blood sugar checked in the ER was above 500, his anion gap was 27 and he was having
Kussmaul breathing pattern.
He was admitted with the DKA protocol. His anion gap is still open, bicarb is less than 5, sugars ranging in the 300s and patient still having very heavy and rapid breathing.
His chest x-ray done in the ER was normal, urine sample was contaminated, urine culture pending, blood culture pending. There was leukocytosis noted on his blood workup antibiotics started empirically cultures are still pending.
He was on Tresiba 28 units at night, Humalog 8 units 3 times daily and metformin 1000 mg twice daily. His HbA1c is 15%, suggesting uncontrolled blood sugar. Diabetic nurse practitioner to follow, currently patient is on 5 units/h and he would need
adjustments for his insulin based on his course of treatment here. Patient is also in A-fib with increased heart rate up to 120s, started on Cardizem infusion, cardiology is following. Patient to be managed in critical care with hourly glucose
checkups, 4 hourly BMPs and ABGs until the gap is closed and then gradually transition to subcutaneous insulin and introduce diet.
Past Medical History
Past Medical History: NIDDM and Psychiatric (Bipolar disorder and anxiety)
Past Surgical History: None
Social History
Tobacco: Non-smoker
Alcohol: Occasional
Drug: None
Personal:
Living: Other (Visiting)
Employment: Employed
Family History
Family History: Reviewed & Not Pertinent
Allergies / Home Medications
Allergies
Allergy/AdvReac Type Severity Reaction Status Date / Time
amoxicillin Allergy Swelling Verified 09/03/24 20:49
Penicillins Allergy Swelling Verified 09/03/24 20:49
Home Medications
�Medication �Instructions �Recorded �Confirmed �Last Taken �Type
bupropion HCl 150 mg 24 hr tablet, 150 mg PO DAILY Mental 09/03/24 09/04/24 Unknown History
extended release Health/Anxiety
insulin degludec 200 unit/mL (3 28 unit SC HS Diabetes 09/03/24 09/04/24 Unknown History
mL) subcutaneous pen (Tresiba
FlexTouch U-200 insulin)
insulin lispro 100 unit/mL 8 unit SC BID@0800,1700 Diabetes 09/03/24 09/04/24 Unknown History
subcutaneous pen
metformin 1,000 mg tablet 1,000 mg PO BID@0800,1700 Diabetes 09/03/24 09/04/24 Unknown History
risperidone 0.5 mg tablet 0.5 mg PO HS Mental Health/Anxiety 09/03/24 09/04/24 Unknown History
rosuvastatin 10 mg tablet 10 mg PO HS High Cholesterol 09/03/24 09/04/24 Unknown History
venlafaxine 150 mg 150 mg PO DAILY Mental 09/03/24 09/04/24 Unknown History
capsule,extended release 24 hr Health/Anxiety
acetaminophen 500 mg tablet 500 mg PO DAILYPRN PRN mild pain 09/04/24 09/04/24 Unknown History
bupropion HCl 300 mg 24 hr tablet, 300 mg PO DAILY Mental 09/04/24 09/04/24 Unknown History
extended release Health/Anxiety
omega 3-pka-qxf-fish oil 100 2 cap PO DAILY Supplement 09/04/24 09/04/24 Unknown History
mg-160 mg-1,000 mg capsule (Fish
Oil)
therapeutic multivitamin 1 tab PO DAILY Supplement 09/04/24 09/04/24 Unknown History
Review of Systems
-
Constitutional: Fatigue
EENT: Sore Throat
Respiratory: Trouble Breathing (Kussmaul breathing)
Cardiac: No Symptoms
Abdomen/GI: Nausea
: No Symptoms
Musculoskeletal: No Symptoms
Skin: No Symptoms
Neuro: No Symptoms
Endocrine: Polydidsia
Hematologic/Lymphatic: No Symptoms
Vitals / Labs / Diagnostic Testing
Vital Signs
Temp Pulse Resp BP Pulse Ox
97.5 F 108 19 144/74 100
09/04/24 08:02 09/04/24 10:00 09/04/24 10:00 09/04/24 10:00 09/04/24 10:00
Lab Data
09/04/24 04:12
Laboratory Results
09/03/24 09/04/24
22:57 06:06
PT 15.4 H
INR 1.19
APTT 32.4 > 200 H*
Microbiology
09/04/24 02:03 Urine Legionella Urinary Antigen - Final
Negative for Legionella pneumophila Serogroup 1 antigen.
A negative result does not rule out the possiblity of
Legionella infection due to other serogroups or species of
Legionella. Clinical correlation is recommended.
09/03/24 21:25 Nasal Swab Influenza Types A & B (YVONNE) - Final
Negative for Influenza A & B, NAAT
Negative results must be combined with clinical observations
and patient history.
Nucleic Acid Amplification test (NAAT)performed on the
[employer] NOW platform.
Diagnostic Testing:
Physical Exam
-
HEENT: Normocephalic, Anicteric and Other (Dry mucous membranes)
Cardiovascular: S1/S2, Regular Rhythm and Other (No murmur or rubs)
Respiratory: Clear and Non-Labored Respirations
GI: Soft, Non Distended, Non Tender and Normal Bowel Sounds
Neurology: Awake and Oriented
Skin: Warm
General: Other (Feels his throat is very dry, heavy breathing, lethargic)
Assessment
-
IMPRESSION
Patient is a 59-year-old male, with past medical history of bipolar disorder, anxiety, insulin-dependent diabetes mellitus who was here in [place] for a business conference, since 09/01/2024, he was feeling lethargic and nauseous. He
missed his insulin doses as he was not eating much. On 09/03/2024, he started to develop heavy breathing and was very lethargic, presented to [facility] ER, admitted with DKA with glucose of greater than 500, bicarb less than 5, anion gap of
27 and positive ketones. In addition his heart rate was ranging in 120s to 130s. He was immediately started on IV fluids and admitted with DKA protocol and critical care. Patient is on Cardizem infusion for atrial fibrillation, cardiology is
following. Workup is being done for his leukocytosis, blood culture and urine culture are pending and patient is empirically on cefepime.
ASSESSMENT
# DKA
# Leukocytosis
# Atrial fibrillation
# GABRIELLA
# Bipolar disorder
# Anxiety
PLAN
# DKA
Causes currently missed dose of insulin, no infectious source identified
Anion gap open, bicarb less than 5, ketones positive, lethargic and has Kussmaul breathing
Continue insulin infusion at 5 units/h-blood glucose every hour-BMP and ABGs every 4 hour
Diabetic nurse practitioner consult appreciated
HbA1c 15%
Continue to monitor and give fluids accordingly-replete electrolytes as needed
# Leukocytosis
Admitted with a TLC count of greater than 22
Chest x-ray clear, COVID and flu negative
CT abdomen pelvis showed no acute pathology
Blood culture and urine culture pending
On empiric treatment with cefepime for now
# Atrial fibrillation
Patient does not have any history of atrial fibrillation
On arrival in ER was in A-fib, converted to normal sinus rhythm spontaneously
Cardiology following
Currently on Cardizem infusion
# GABRIELLA
Serum creatinine 1.4 on presentation
No prior history of kidney disease, most likely secondary to dehydration and decreased perfusion
Continue to monitor with IV fluids
# Bipolar disorder
Continue home meds as able
# Anxiety
Continue home meds as able
Keep oxygen saturation greater than 90 to 94%
Keep potassium greater than 4 and magnesium greater than 2
Currently n.p.o., can take ice chips and water sips
CODE STATUS-full code
DVT prophylaxis-Lovenox 40 mg subcut daily
--- NOTE | 2024-09-04 11:51 | W.PN.HOSP.TC ---
Today's Communication/Plan
-
see A/P
Assessment / Plan
Assessment / Plan
59-year-old male with past medical history of insulin-dependent diabetes, bipolar, anxiety, p/w abnormal blood sugar and breathing difficulty.
Patient is visiting [place] for a work conference. He apparently arrived 2 days [employer]ANT C[employer]URE [employer]NA[employer]. On arrival he felt somewhat ill with malaise and nausea. He had decreased appetite so he decided not to take his insulin.
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
He noticed that he was having heavy breathing and he decided to come to the emergency department.
Anion gap was 27 with pH 6.8 with a pCO2 of 30 in the ED.
A/P:
# DKA due to missed insulin
# heavy breathing likely Kussmaul breathing seen in severe metabolic acidosis
# IDDM
Cont NPO
Cont insulin drip with IVF
Follow BMP Q4H until AG closure x2
Of note, A1C 15 %
Of note, COVID/FLu negative
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
# Leukocytosis suspect reactive with DKA
No fever. Clear Xray. No localizing symptoms.
Follow blood cx x2
Follow urine culture (although pt did not complain of urinary symptoms)
CT AP: No acute pathology of the abdomen or pelvis identified.
CXR NAD
Continue empiric cefepime for now
# Bipolar MD
cont home meds
# GABRIELLA, likely prerenal with DKA
Cr 1.4 -> 1.2, cont to monitor
# Mild Lipase elevation likely 2/2 DKA
cont NPO with IVF
Follow level
# New onset AFIB RVR - Went into afib after arrival, no prior h/o afib
appears to have spontaneously converted to NSR
Defer heparin drip and Cardizem drip to Card
Check Echo
Card consulted
DVT PPX - heparin drip
Code status - full code
DW Powder Room Attendant
DW Card team
Offered to update family, pt politely declined
CC Mx time 40 min
Anticipated Discharge: > 48 hours
Subjective/Interval History
-
Date of Service: September 04, 2024
Objective Data
-
Labs:
Laboratory Results
09/03/24 09/04/24 09/04/24
23:55 01:45 02:03
WBC
Hgb
Hct
Plt Count
APTT
Sodium 135 Cancelled 139
Potassium 3.8 Cancelled 4.1
Chloride 96 L Cancelled 108 H
Carbon Dioxide 19 L Cancelled < 5 L*
BUN 21 H Cancelled 21 H
Creatinine 1.1 Cancelled 1.3
Glucose 216 H Cancelled 97
Calcium 6.6 L* D Cancelled 7.8 L
Total Bilirubin 0.5
AST 21
ALT 16
Alkaline Phosphatase 146 H
09/04/24 09/04/24 09/04/24
04:00 04:12 06:06
WBC 20.7 H
Hgb 13.0 D
Hct 36.8 L
Plt Count 197 D
APTT > 200 H*
Sodium Cancelled 133 L
Potassium Cancelled 4.0
Chloride Cancelled 109 H
Carbon Dioxide Cancelled < 5 L*
BUN Cancelled 20
Creatinine Cancelled 1.2
Glucose Cancelled 73
Calcium Cancelled 8.6
Total Bilirubin
AST
ALT
Alkaline Phosphatase
09/04/24 09/04/24 09/04/24
08:06 12:00 15:00
WBC
Hgb
Hct
Plt Count
APTT Pending
Sodium 132 L Pending
Potassium 4.9 Pending
Chloride 106 Pending
Carbon Dioxide < 5 L* Pending
BUN 19 Pending
Creatinine 1.2 Pending
Glucose 257 H Pending
Calcium 8.3 L Pending
Total Bilirubin
AST
ALT
Alkaline Phosphatase
09/04/24 09/04/24
16:00 20:00
WBC
Hgb
Hct
Plt Count
APTT
Sodium Pending Pending
Potassium Pending Pending
Chloride Pending Pending
Carbon Dioxide Pending Pending
BUN Pending Pending
Creatinine Pending Pending
Glucose Pending Pending
Calcium Pending Pending
Total Bilirubin
AST
ALT
Alkaline Phosphatase
Vital Signs:
Vital Signs
Temp Pulse Resp BP Pulse Ox
36.4 C 108 19 144/74 100
09/04/24 08:02 09/04/24 10:00 09/04/24 10:00 09/04/24 10:00 09/04/24 10:00
I&O
09/03/24 09/04/24 09/05/24
06:59 06:59 06:59
Intake Total 1103.0 / 1271.0 700.0 / 700.0
Output Total 700 / 700 600 / 600
Balance 403.0 / 571.0 100.0 / 100.0
Review of Systems
-
All other systems: Reviewed and negative
Physical Exam
-
General: Well Developed, Well Nourished, No Apparent Distress, Comfortable, Conversant and Other (lethargic ); Negative Respiratory Distress
HEENT: Normocephalic, Atraumatic, Nose Appears Normal and Ears Appear Normal; Negative Oxygen
Respiratory: Clear to Auscultation and Non Labored Respirations; Negative Accessory Resp Muscle Use
Cardiac: Regular Rhythm and S1/S2
GI: Soft, Nontender, Nondistended and Normal Bowel Sounds
Skin: Warm and Dry
Neuro: Awake, Alert, Oriented and AO x 3
Psych: Calm and Intact Judgement/Insight
Data Reviewed
-
Diagnostic Radiology: Report Reviewed by me
CT Scan: Report Reviewed by me
Labs: Labs Reviewed by me
--- NOTE | 2024-09-04 12:25 | CM ---
CM following re: discharge planning.
Discussed in rounds, reviewed pt's chart, met with pt.
Pt is a 59 year old male, admitted with primary dx of DKA.
Pt reports he lives with spouse and 22 year old son in a 2[place], 2 steps to enter in [place]. pt is here for business trip. 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
Pt will need a hard script for medications at discharge.
D/C plan: home with anticipated no needs.
CM will follow with discharge plan updates as needed.
[2024-09-04 12:28] LABS: Glucose - Point of Care 255 mg/dl (70-99)
[2024-09-04] MEDS: FLUSH (NSS) 1 FLUSH IV (12:31)
--- NOTE | 2024-09-04 13:10 | PTCARENOTE ---
Overall remains tired but easily arousable. Cardizem gtt decreased at 1200 to 5 mg/hr and currently turned off - HR SR in the 90's. VS as documented. Per Cardiology Heparin gtt dc'd currently. BS coming down without the dextrose in the IV. Currently
224 and pt receiving 4 units/hr on the Insulin. Voiding yellow urine in the urinal. Labs sent as ordered at 1230- awaiting results. Assessment overall unchanged although breathing does not seem as 'heavy' as this morning.
[2024-09-04 13:18] LABS: Glucose - Point of Care 224 mg/dl (70-99)
[2024-09-04 13:30] LABS: Blood Urea Nitrogen 19 mg/dl (9-20); Calcium 8.4 mg/dl (8.4-10.2); Carbon Dioxide < 5 mmol/L (22-30); Chloride 108 mmol/L (98-107); Estimated Creatinine Clearance 74 ml/min; Glucose 257 mg/dl (70-99); Potassium 4.3 mmol/L (3.5-5.1); Sodium 132 mmol/L (135-145); eGFR > 60.00
--- NOTE | 2024-09-04 14:00 | PTCARENOTE ---
Dr. Hilario aware of labs. No changes currently
[2024-09-04 14:16] LABS: Glucose - Point of Care 180 mg/dl (70-99)
--- NOTE | 2024-09-04 15:00 | PTCARENOTE ---
With stimulation and encouragement partial bath given and pt did own oral care. Turned and repositioned. Skin care given-otherwise pt drowsy when left alone. VS as documented. Insulin gtt continues
[2024-09-04 15:11] LABS: Glucose - Point of Care 170 mg/dl (70-99)
--- NOTE | 2024-09-04 16:20 | PTCARENOTE ---
Antwan-labs sent. Glucose 135- Insulin gtt per protocol at 1 unit/hr
[2024-09-04 16:22] LABS: Glucose - Point of Care 135 mg/dl (70-99)
[2024-09-04] MEDS: NOVOLIN R INSULIN INFUSION 100 IV (16:56)
[2024-09-04 17:01] LABS: Blood Urea Nitrogen 19 mg/dl (9-20); Calcium 8.5 mg/dl (8.4-10.2); Carbon Dioxide 6 mmol/L (22-30); Chloride 112 mmol/L (98-107); Estimated Creatinine Clearance 74 ml/min; Glucose 160 mg/dl (70-99); Potassium 3.8 mmol/L (3.5-5.1); Sodium 138 mmol/L (135-145); eGFR > 60.00
[2024-09-04 17:14] LABS: Glucose - Point of Care 147 mg/dl (70-99)
--- NOTE | 2024-09-04 17:15 | PTCARENOTE ---
Labs resulted to Dr. Hilario. New IV fluids hung at 1700 D5 1/2 NS + 20 meq KCl at 150 ml/hr via LAC IV site.
[2024-09-04] MEDS: LOVENOX 40 MG SC (18:03)
--- NOTE | 2024-09-04 18:10 | PTCARENOTE ---
Resting. Dozing unless disturbed. 1 amp Bicarb given per md order. No complaints. No changes in assessment. Insulin gtt currently at 2 units/hr- glucose 185
[2024-09-04 18:12] LABS: Glucose - Point of Care 185 mg/dl (70-99)
[2024-09-04 19:10] LABS: Glucose - Point of Care 213 mg/dl (70-99)
[2024-09-04 20:03] LABS: Glucose - Point of Care 203 mg/dl (70-99)
--- NOTE | 2024-09-04 20:15 | PTCARENOTE ---
Received pt from previous RN. Pt is AAOx3, drowsy @ times, able to be aroused. NSR/sinus tach on the monitor, + pedals. On RA O2 sat 99%, lungs are clear, non-productive occ cough. NPO. Pt uses the urinal. Skin is flushed. Blood sugars Q1, Insulin
gtt @ 3 units/hr (see worklist). D5/0.45 NS w/ 20 of KCl @ 150 ml/hr. Pt is laying in bed with call marks in reach.
[2024-09-04 20:30] LABS: Blood Urea Nitrogen 20 mg/dl (9-20); Calcium 9.1 mg/dl (8.4-10.2); Carbon Dioxide 8 mmol/L (22-30); Chloride 113 mmol/L (98-107); Estimated Creatinine Clearance 74 ml/min; Glucose 202 mg/dl (70-99); Potassium 3.8 mmol/L (3.5-5.1); Sodium 137 mmol/L (135-145); eGFR > 60.00
[2024-09-04 21:07] LABS: Glucose - Point of Care 186 mg/dl (70-99)
[2024-09-04 22:09] LABS: Glucose - Point of Care 179 mg/dl (70-99)
[2024-09-04 23:10] LABS: Glucose - Point of Care 216 mg/dl (70-99)
--- NOTE | 2024-09-04 23:24 | PTCARENOTE ---
Insulin titrated per protocol (see worklist). Systems reviewed, no new changes in assessment. Safe environment maintained.
[2024-09-05] VITALS (23 sets, daily range): BP systolic 107–128; BP diastolic 62–108; PULSE 97; O2SAT 97–98; BMI 26.8
[2024-09-05 00:08] LABS: Glucose - Point of Care 204 mg/dl (70-99)
[2024-09-05 00:44] LABS: Blood Urea Nitrogen 17 mg/dl (9-20); Calcium 8.4 mg/dl (8.4-10.2); Carbon Dioxide 8 mmol/L (22-30); Chloride 114 mmol/L (98-107); Estimated Creatinine Clearance 80 ml/min; Glucose 209 mg/dl (70-99); Potassium 3.5 mmol/L (3.5-5.1); Sodium 137 mmol/L (135-145); eGFR > 60.00
[2024-09-05 01:08] LABS: Glucose - Point of Care 218 mg/dl (70-99)
[2024-09-05 02:06] LABS: Glucose - Point of Care 211 mg/dl (70-99)
[2024-09-05 03:17] LABS: Glucose - Point of Care 184 mg/dl (70-99)
[2024-09-05 04:07] LABS: Glucose - Point of Care 194 mg/dl (70-99)
[2024-09-05 04:13] LABS: % Basophils 0.6 % (0-2); % Eosinophils 1.2 % (0-6); % Immature Granulocytes 0.3 % (0-0.5); % Lymphocytes 11.8 % (20.5-51.1); % Monocytes 8.7 % (1.7-9.3); % Neutrophils 77.4 % (42.2-75.2); Absolute Eosinophils 0.1 10^3/uL (0-0.7); Absolute Lymphocytes 0.8 10^3/uL (1.2-3.4); Absolute Monocytes 0.6 10^3/uL (0.1-0.6); Absolute Neutrophils 5.3 10^3/uL (1.4-6.5); Hematocrit 33.9 % (39.0-52.0); Hemoglobin 12.1 g/dL (13.0-18.0); Mean Corp Hgb Conc. 35.7 g/dL (33.0-37.0); Mean Corpuscular Hgb 31.3 pg (27.0-31.0); Mean Corpuscular Volume 87.6 fL (80.0-94.0); Nucleated Red Blood Cells % 0 % (-); Platelet Count 161 10^3/uL (130-400); Red Blood Cell Count 3.87 10^6/uL (4.70-6.10); Red Cell Dist. Width 13.2 % (11.5-14.5); White Blood Cell Count 6.8 10^3/uL (4.8-10.8)
[2024-09-05 04:34] LABS: Lipase 164 U/L (23-300); Magnesium 2.1 mg/dl (1.6-2.3)
--- NOTE | 2024-09-05 04:45 | PTCARENOTE ---
Systems reviewed, no new changes in assessment. AM labs sent. Safe environment maintained.
[2024-09-05 05:13] LABS: Glucose - Point of Care 204 mg/dl (70-99)
[2024-09-05 05:20] LABS: Blood Urea Nitrogen 15 mg/dl (9-20); Calcium 8.5 mg/dl (8.4-10.2); Carbon Dioxide 10 mmol/L (22-30); Chloride 114 mmol/L (98-107); Estimated Creatinine Clearance 88 ml/min; Glucose 194 mg/dl (70-99); Potassium 3.4 mmol/L (3.5-5.1); Sodium 137 mmol/L (135-145); eGFR > 60.00
[2024-09-05] MEDS: MAXIPIME 1000 MG IV (05:50)
[2024-09-05] MEDS: STERILE WATER FOR INJECTION 10 ML IV (05:50)
[2024-09-05 06:08] LABS: Glucose - Point of Care 228 mg/dl (70-99)
[2024-09-05] MEDS: D5/0.45%NSS with KCL 20 MEQ 1000 IV ×2 (06:24→13:09)
[2024-09-05 07:00] LABS: Glucose - Point of Care 209 mg/dl (70-99)
--- NOTE | 2024-09-05 07:45 | W.PN.HOSP.TC ---
Today's Communication/Plan
-
see A/P
Assessment / Plan
Assessment / Plan
59-year-old male with past medical history of insulin-dependent diabetes, bipolar, anxiety, p/w abnormal blood sugar and breathing difficulty.
Patient is visiting [place] for a work conference. 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 On arrival he felt somewhat ill with malaise and nausea. He had decreased appetite so he decided not to take his insulin.
He has not taken his insulin since 2 days GLUE CLAMP OPERATOR due to ongoing malaise.
He noticed that he was having heavy breathing and he decided to come to the emergency department.
Anion gap was 27 with pH 6.8 with a pCO2 of 30 in the ED.
A/P:
# DKA due to missed insulin use
# heavy breathing POA likely Kussmaul breathing seen in severe metabolic acidosis
# IDDM
Cont NPO
Cont insulin drip with IVF, Bicarb improving but AGAP not closed yet
Follow BMP Q4H until AG closure x2
Of note, A1C 15 %
Of note, COVID/FLu negative
DM DIRECTOR OF ADULT EPILEPSY on board
Commercial Loan Specialist on board
# Leukocytosis suspect reactive with DKA, resolved
No fever. Clear Xray. No localizing symptoms.
Follow blood cx x2 so far negative
Follow urine culture (although pt did not complain of urinary symptoms)
CT AP: No acute pathology of the abdomen or pelvis identified.
CXR NAD
Continue empiric cefepime for now, would DC when culture results are negative
# Bipolar MD
cont home meds
# GABRIELLA, prerenal with DKA
Cr 1.4 -> 1.0
# Mild Lipase elevation likely 2/2 DKA
cont NPO with IVF
Follow level
# New onset AFIB RVR, spontaneously converted to NSR
weaned off Cardizem drip
CHADVAsc score 1, hence no need for therapeutic anticoagulation, off heparin drip
Echo unrevealing: EF 60-65%. No significant valvular disease
Card on board
DVT PPX - lovenox SQ
Code status - full code
CC Mx for DKA, 35 min
DW RN
Anticipated Discharge: 24 - 48 hours
Subjective/Interval History
-
Date of Service: September 05, 2024
Objective Data
-
Labs:
Laboratory Results
09/04/24 09/04/24 09/05/24
19:52 23:58 00:00
WBC
Hgb
Hct
Plt Count
Sodium 137 137 Cancelled
Potassium 3.8 3.5 Cancelled
Chloride 113 H 114 H Cancelled
Carbon Dioxide 8 L* 8 L* Cancelled
BUN 20 17 Cancelled
Creatinine 1.2 1.1 Cancelled
Glucose 202 H 209 H Cancelled
Calcium 9.1 8.4 Cancelled
09/05/24 09/05/24 09/05/24
04:02 07:59 11:59
WBC 6.8
Hgb 12.1 L
Hct 33.9 L
Plt Count 161
Sodium 137 Pending Pending
Potassium 3.4 L Pending Pending
Chloride 114 H Pending Pending
Carbon Dioxide 10 L* Pending Pending
BUN 15 Pending Pending
Creatinine 1.0 Pending Pending
Glucose 194 H Pending Pending
Calcium 8.5 Pending Pending
09/05/24 09/05/24 09/05/24
15:59 19:59 23:59
WBC
Hgb
Hct
Plt Count
Sodium Pending Pending Pending
Potassium Pending Pending Pending
Chloride Pending Pending Pending
Carbon Dioxide Pending Pending Pending
BUN Pending Pending Pending
Creatinine Pending Pending Pending
Glucose Pending Pending Pending
Calcium Pending Pending Pending
Vital Signs:
Vital Signs
Temp Pulse Resp BP Pulse Ox
36.7 C 97 22 118/68 99
09/05/24 03:00 09/05/24 07:00 09/05/24 07:00 09/05/24 07:00 09/05/24 07:00
I&O
09/04/24 09/05/24 09/06/24
06:59 06:59 06:59
Intake Total 1103.0 / 1271.0 4091.0 / 4244.0 153 / 153
Output Total 700 / 700 3425 / 3425
Balance 403.0 / 571.0 666.0 / 819.0 153 / 153
Review of Systems
-
All other systems: Reviewed and negative
Physical Exam
-
General: Well Developed, Well Nourished, No Apparent Distress, Comfortable and Conversant; Negative Respiratory Distress
HEENT: Normocephalic, Atraumatic, Nose Appears Normal and Ears Appear Normal; Negative Oxygen
Respiratory: Clear to Auscultation and Non Labored Respirations; Negative Accessory Resp Muscle Use
Cardiac: Regular Rhythm and S1/S2
GI: Soft, Nontender, Nondistended and Normal Bowel Sounds
Skin: Warm and Dry
Neuro: Awake, Alert, Oriented and AO x 3
Psych: Calm and Intact Judgement/Insight
Data Reviewed
-
Diagnostic Radiology: Report Reviewed by me
CT Scan: Report Reviewed by me
Labs: Labs Reviewed by me
[2024-09-05] MEDS: EFFEXOR XR 150 MG PO (08:00)
[2024-09-05] MEDS: WELLBUTRIN XL (24 hour extended release) 150 MG PO (08:00)
[2024-09-05] MEDS: WELLBUTRIN XL (24 hour extended release) 300 MG PO (08:00)
[2024-09-05 08:09] LABS: Glucose - Point of Care 216 mg/dl (70-99)
--- NOTE | 2024-09-05 08:11 | PN.DE.MGMTRT ---
Insulin Management
- -
09/05/2024 Diabetes Management Consult Follow up
Patient admitted 09/03 with c/o nausea, dizziness, labored breathing; found to be in DKA. PMH diabetes, bipolar, anxiety. Prior to admission was ordered Tresiba 28 units @ hs and humalog 8 units TID with metformin 1000 BID. A1C on admission 15%, cr
1.2, eGFR >60. Patient had not taken insulin for a 'few days'.
Patient sleeping, awakened easily, but lethargic, able to discuss diabetes care prior to admission.
On admission glucose 462/505, GAP 27.
Serial labs indicate GAP 13. Glucose this AM 216, DKA insulin infusion continues at 3 units per hour.
Will continue to follow until GAP closed then transition to home regimen. With A1C of 15 will need adjustments to regimen.
Discussed with nurse.
Diabetes History
- -
Type of Diabetes: 2 requiring insulin
Pre-Admission Diabetes Regimen
09/04/24 09/04/24 09/04/24
08:06 12:24 16:14
Creatinine 1.2 1.2 1.2
09/04/24 09/04/24 09/05/24
19:52 23:58 00:00
Creatinine 1.2 1.1 Cancelled
09/05/24
04:02
Creatinine 1.0
Lab Results
Hemoglobin A1c 15.0 % (4.0-5.6) H 09/04/24 04:12
Insulin Pump Settings
IP Diabetes Regimen
09/04/24 09/04/24 09/04/24
08:03 08:06 09:04
Glucose 257 H
POC Glucose 257 H 318 H
09/04/24 09/04/24 09/04/24
09:57 11:07 12:17
Glucose
POC Glucose 304 H 309 H 255 H
09/04/24 09/04/24 09/04/24
12:24 13:07 14:05
Glucose 257 H
POC Glucose 224 H 180 H
09/04/24 09/04/24 09/04/24
15:00 16:10 16:14
Glucose 160 H
POC Glucose 170 H 135 H
09/04/24 09/04/24 09/04/24
17:02 18:00 18:59
Glucose
POC Glucose 147 H 185 H 213 H
09/04/24 09/04/24 09/04/24
19:51 19:52 20:55
Glucose 202 H
POC Glucose 203 H 186 H
09/04/24 09/04/24 09/04/24
21:57 22:58 23:57
Glucose
POC Glucose 179 H 216 H 204 H
09/04/24 09/05/24 09/05/24
23:58 00:00 00:56
Glucose 209 H Cancelled
POC Glucose 218 H
09/05/24 09/05/24 09/05/24
01:54 03:05 03:55
Glucose
POC Glucose 211 H 184 H 194 H
09/05/24 09/05/24 09/05/24
04:02 05:01 05:56
Glucose 194 H
POC Glucose 204 H 228 H
09/05/24 09/05/24
06:48 07:56
Glucose
POC Glucose 209 H 216 H
Meal type: Dinner
Meal type: Lunch
Patient Education
[2024-09-05 08:30] LABS: Blood Urea Nitrogen 16 mg/dl (9-20); Calcium 8.3 mg/dl (8.4-10.2); Carbon Dioxide 16 mmol/L (22-30); Chloride 115 mmol/L (98-107); Estimated Creatinine Clearance 88 ml/min; Glucose 198 mg/dl (70-99); Potassium 3.1 mmol/L (3.5-5.1); Sodium 138 mmol/L (135-145); eGFR > 60.00
--- NOTE | 2024-09-05 08:37 | W.PN.INTV ---
Today's Communication / Plan
Recommendations
Follow BMP, once anion gap remains closed for 2 BMPs, transition to subcutaneous insulin along with low-carb diet
PT/OT evaluation
Assessment
-
IMPRESSION
Patient is a 59-year-old male, with past medical history of bipolar disorder, anxiety, insulin-dependent diabetes mellitus who was here in [place] for a business conference, since 09/01/2024, he was feeling lethargic and nauseous. He
missed his insulin doses as he was not eating much. On 09/03/2024, he started to develop heavy breathing and was very lethargic, presented to [facility] ER, admitted with DKA with glucose of greater than 500, bicarb less than 5, anion gap of
27 and positive ketones. In addition his heart rate was ranging in 120s to 130s. He was immediately started on IV fluids and admitted with DKA protocol and critical care.
Today patient's anion gap is 7, bicarb is 16, blood sugar 194
Normal sinus rhythm, off Cardizem, echocardiography shows normal left ventricular function and size
Legionella, influenza, COVID-negative, blood culture-no growth in last 24 hours, urine culture is pending
ASSESSMENT
# DKA
# Leukocytosis
# Atrial fibrillation
# GABRIELLA
# Bipolar disorder
# Anxiety
PLAN
# DKA
Causes currently missed dose of insulin, no infectious source identified
Anion gap 7, follow fresh BMP, once gap is closed for 2 BMPs, can transition to subcutaneous insulin with low-carb diet
Diabetic nurse practitioner consult appreciated
HbA1c 15%
# Leukocytosis
Admitted with a TLC count of greater than 22-now resolved
Chest x-ray clear, COVID and flu negative-CT abdomen pelvis showed no acute pathology
Blood culture reveals no growth in last 24 hours, urine culture is pending
On empiric treatment with cefepime for now
# Atrial fibrillation
Patient does not have any history of atrial fibrillation
On arrival in ER was in A-fib, converted to normal sinus rhythm spontaneously-currently off Cardizem-echocardiography within normal limits(09/04/2024)
Cardiology following-eventual rhythm control with PVI for recurrent afib in the future
# GABRIELLA
Serum creatinine 1.4 on presentation-now 1.0- resolved
No prior history of kidney disease, most likely secondary to dehydration and decreased perfusion
# Bipolar disorder
Continue home meds as able
# Anxiety
Continue home meds as able
Keep oxygen saturation greater than 90 to 94%
Keep potassium greater than 4 and magnesium greater than 2
Currently n.p.o., can take ice chips and water sips
CODE STATUS-full code
DVT prophylaxis-Lovenox 40 mg subcut daily
Subjective Dataa
Subjective Data
Date of Service:
Date of Service: September 05, 2024
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
Subjective:
Patient's breathing pattern is better
Patient feels exhausted, says that this is the first time in a week that he is able to breathe normally and feels sleepy because he was not able to sleep with the heavy breathing
Clinically improved, denies any nausea, vomiting, headache, chest pain, shortness of breath, palpitations
Still has cough with some mucus
Breathing on room air
Awake, alert, oriented
Blood sugar 194, anion gap 7, bicarb 16
Review of Systems
General: Other (Reviewed and negative)
Objective Data
Data Reviewed
Vital Signs / I&O / Oxygen:
Vital Signs
Temp Pulse Resp BP Pulse Ox
98.3 F 97 22 118/68 99
09/05/24 07:30 09/05/24 07:00 09/05/24 07:00 09/05/24 07:00 09/05/24 07:00
Intake and Output
09/04/24 09/05/24 09/06/24
06:59 06:59 06:59
Intake Total 1103.0 / 1271.0 4091.0 / 4244.0 153 / 153
Output Total 700 / 700 3425 / 3425
Balance 403.0 / 571.0 666.0 / 819.0 153 / 153
SaO2 99
Physical Exam
General: Comfortable and Other (Feels hungry, currently n.p.o.)
HEENT: Normocephalic, Anicteric and Moist Mucous Membranes
Cardiovascular: S1-S2, Regular Rhythm and Other (No murmur or rub)
Respiratory: Clear
GI: Soft, Non Distended, Non Tender and Normal Bowel Sounds
Neurology: Awake, Oriented and No Motor Deficits
Skin: Warm, Dry and Good Color
Labs/Micro/Reports
Lab Data
09/05/24 04:02
Laboratory Results
09/04/24
15:00
APTT Cancelled
Microbiology
09/04/24 02:03 Urine Urine Culture - Final
NO GROWTH
09/04/24 04:12 Nose MRSA Screen - Final
No Methicillin Resistant Staphylococcus aureus isolated.
09/03/24 22:54 Blood/Venous Blood Culture - Preliminary
No Growth in 24 hours- Final report to follow
09/03/24 21:25 Blood/Venous Blood Culture - Preliminary
No Growth in 24 hours- Final report to follow
09/04/24 02:03 Urine Legionella Urinary Antigen - Final
Negative for Legionella pneumophila Serogroup 1 antigen.
A negative result does not rule out the possiblity of
Legionella infection due to other serogroups or species of
Legionella. Clinical correlation is recommended.
09/03/24 21:25 Nasal Swab Influenza Types A & B (YVONNE) - Final
Negative for Influenza A & B, NAAT
Negative results must be combined with clinical observations
and patient history.
Nucleic Acid Amplification test (NAAT)performed on the
[employer] platform.
[2024-09-05 09:18] LABS: Glucose - Point of Care 189 mg/dl (70-99)
--- NOTE | 2024-09-05 09:32 | PTCARENOTE ---
recd, handoff bedside, insulin infusing. drowsy unless disturbed, taking sips easily, swallowed pills. c/o 'tired'. assessed as noted, aware of plans for the day, BMP drawn, results to resident. skin pink, VS noted, resting in bed, call marks in
reach.
--- NOTE | 2024-09-05 09:56 | PTCARENOTE ---
OOB in [place].
--- NOTE | 2024-09-05 10:00 | W.PN.CARDCBS ---
Today's Communication / Plan
-
Start Eliquis 5mg BID
Will need outpatient follow up in [place]
We will sign off, please recall as needed
Impression / Plan
-
PCP: None local
Cardiology: None
Impression:
Admitted with DKA 09/03/24
Newly diagnosed Afib with RVR
spontaneously converted to SR
Metabolic acidosis
Leukocytosis
Hyponatremia
Hypocalcemia
Elevated lipase
DM 2
h/o DKA
Bipolar disorder
Hyperlipidemia
Echo 09/04/2024: LVEF 60 to 65%, WMA analysis limited by image quality, no MR, no /AR, no TR, normal pericardium without effusion
Patient came to [facility] with dizziness and was admitted with DKA and cardiology is now consulted for Afib. 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 Patient was not feeling well after his flight and didn't eat so he didn't dose
his insulin and this went on for 2 days. Patient felt dizzy and SOB at his hotel yesterday and so he came to [facility] and was hyperglycemic and labs abnormal and concerning for DKA. Patient now admitted to ICU on insulin gtt. Cardiology consulted for
paroxysmal Afib with RVR that was noticed in the ER around 2100 last night. Initial ECG on admission was SR, but HR then noted to increase and ECG rechecked and looked like Afib. Patient started on Cardizem gtt and spontaneously converted to SR
within hours. Remains in SR/ST now. No palpitations. No chest pain. Still SOB. Amp of bicarb given earlier. No known h/o Afib. No previous cardiac testing.
Plan:
-New diagnosis of atrial fibrillation in setting of DKA, spontaneously converted and remains in sinus rhythm
-Echo with NL LV function and no sig grade valve dz
-[id number] is 1 for h/o DM
-Recommended minimum 1 month of OAC with Eliquis 5mg BID
-Discussed that he should follow up with local post commander in [place] to discuss continuing OAC and further work up
Stable cardiac status
We will sign off, please recall as needed
Progress Note - Supervisor Cutting And Sewing Room
Subjective
Date of Service: September 05, 2024
NAOE. Tells me his breathing is comfortable today. Sinus rhythm on tele.
Objective
Labs:
09/05/24 04:02
Labs
Hgb 12.1 g/dL (13.0-18.0) L 09/05/24 04:02
Hct 33.9 % (39.0-52.0) L 09/05/24 04:02
Plt Count 161 10^3/uL (130-400) 09/05/24 04:02
PT 15.4 Sec (11.4-14.6) H 09/03/24 22:57
INR 1.19 09/03/24 22:57
APTT Cancelled 09/04/24 15:00
Sodium 138 mmol/L (135-145) 09/05/24 07:57
Potassium 3.1 mmol/L (3.5-5.1) L 09/05/24 07:57
BUN 16 mg/dl (9-20) 09/05/24 07:57
Creatinine 1.0 mg/dL (0.7-1.3) 09/05/24 07:57
Glucose 198 mg/dl (70-99) H 09/05/24 07:57
Troponins
09/03/24
22:54
Troponin I < 0.012
Vital Signs and I&O:
Vital Signs
Temp Pulse Resp BP Pulse Ox
98.3 F 98 19 118/69 97
09/05/24 07:30 09/05/24 09:27 09/05/24 09:27 09/05/24 09:27 09/05/24 09:27
Vital Signs
Temp Pulse Resp BP Pulse Ox
98.3 F 98 19 118/69 97
09/05/24 07:30 09/05/24 09:27 09/05/24 09:27 09/05/24 09:27 09/05/24 09:27
Intake & Output
09/03/24 09/04/24 09/05/24 09/06/24
06:59 06:59 06:59 06:59
Intake Total 1103.0 / 1271.0 4091.0 / 4244.0 458 / 458
Output Total 700 / 700 3425 / 3425
Balance 403.0 / 571.0 666.0 / 819.0 458 / 458
Physical Exam
Physical Exam
Gen: NAD, AAOx3
HEENT: NC/AT, sclera anicteric
Neck: No JVD
CV: RRR, NL s1/s2, no M/R/G
Lungs: CTAB
Abd: S/ND
Ext: No LE edema
Skin: Warm, dry
Neuro: Non-focal
[2024-09-05] MEDS: ZOFRAN 4 MG IV (10:26)
[2024-09-05 10:28] LABS: Glucose - Point of Care 215 mg/dl (70-99)
[2024-09-05 11:09] LABS: Glucose - Point of Care 237 mg/dl (70-99)
[2024-09-05] MEDS: ELIQUIS 5 MG PO ×2 (11:09→21:03)
[2024-09-05] MEDS: KCL 270 MEQ IV ×2 (11:09→16:24)
[2024-09-05 12:21] LABS: Glucose - Point of Care 216 mg/dl (70-99)
[2024-09-05 12:34] LABS: Blood Urea Nitrogen 15 mg/dl (9-20); Calcium 8.4 mg/dl (8.4-10.2); Carbon Dioxide 16 mmol/L (22-30); Chloride 114 mmol/L (98-107); Estimated Creatinine Clearance 98 ml/min; Glucose 219 mg/dl (70-99); Potassium 3.4 mmol/L (3.5-5.1); Sodium 136 mmol/L (135-145); eGFR > 60.00
--- NOTE | 2024-09-05 12:40 | PTCARENOTE ---
back to bed, to bathroom first, brushed teeth. gait steady, once back in bed, 'I feel so much better now'
[2024-09-05 13:18] LABS: Glucose - Point of Care 229 mg/dl (70-99)
[2024-09-05] MEDS: NOVOLIN N vial 0.1 UNITS SC (14:01)
--- NOTE | 2024-09-05 14:10 | PN.DIAED10 ---
Update Note
- Diabetes Education Update Note
Notes:
09/05/2024 Update Note Diabetes Management
GAP closed times 2, will transition from DKA insulin infusion. Will give 10 units NPH now, insulin infusion to be turned off 1 1/2 hours after NPH administered. Will start 8 units AC novolog with dinner with moderate corrective and lantus 30 units
@ hs. AC novolog may require further adjustments as A1C is 15%. Discussed with patient and nurse.
[2024-09-05 14:13] LABS: Glucose - Point of Care 207 mg/dl (70-99)
[2024-09-05 15:11] LABS: Glucose - Point of Care 216 mg/dl (70-99)
--- NOTE | 2024-09-05 15:43 | W.PN.UPDATE ---
Update Note
Progress Note Update
Patient is clinically improved.
Feels better
Anion gap has closed
Will replete potassium with additional 40 mg of KCl IV.
Patient is nauseous 1 use oral route just yet
Patient will be transition to subcu insulin
Will transfer to telemetry
Critical care team will sign off
--- NOTE | 2024-09-05 16:00 | PTCARENOTE ---
glucose readings noted, insulin and IV fluids off per order. resting unless disturbed.
[2024-09-05] MEDS: NOVOLOG FLEXPEN 8 UNITS SC (17:00)
[2024-09-05] MEDS: NOVOLOG FLEXPEN-MODERATE RESISTANCE 3 UNITS SC (17:01)
[2024-09-05 17:08] LABS: Glucose - Point of Care 219 mg/dl (70-99)
[2024-09-05] MEDS: D5/0.45%NSS with KCL 20 MEQ IV (21:00)
[2024-09-05] MEDS: CRESTOR 10 MG PO (21:03)
[2024-09-05] MEDS: RISPERDAL 0.5 MG PO (21:03)
[2024-09-05] MEDS: LANTUS 0.3 UNITS SC (21:49)
[2024-09-05 21:53] LABS: Glucose - Point of Care 235 mg/dl (70-99)
--- NOTE | 2024-09-05 23:23 | PTCARENOTE ---
Patient transferred to telemetry
--- NOTE | 2024-09-05 23:32 | PTCARENOTE ---
Patient transferred to telemetry
[2024-09-06] VITALS (7 sets, daily range): BP systolic 112–140; BP diastolic 67–84; PULSE 92; O2SAT 97; BMI 26.8
[2024-09-06 05:34] LABS: % Eosinophils 5.6 % (0-6); % Immature Granulocytes 0.3 % (0-0.5); % Lymphocytes 21.7 % (20.5-51.1); % Monocytes 15.3 % (1.7-9.3); % Neutrophils 56.1 % (42.2-75.2); Absolute Eosinophils 0.2 10^3/uL (0-0.7); Absolute Lymphocytes 0.9 10^3/uL (1.2-3.4); Absolute Monocytes 0.6 10^3/uL (0.1-0.6); Absolute Neutrophils 2.2 10^3/uL (1.4-6.5); Hematocrit 31.7 % (39.0-52.0); Hemoglobin 11.5 g/dL (13.0-18.0); Mean Corp Hgb Conc. 36.3 g/dL (33.0-37.0); Mean Corpuscular Hgb 31.2 pg (27.0-31.0); Mean Corpuscular Volume 85.9 fL (80.0-94.0); Nucleated Red Blood Cells % 0 % (-); Platelet Count 127 10^3/uL (130-400); Red Blood Cell Count 3.69 10^6/uL (4.70-6.10); Red Cell Dist. Width 13.4 % (11.5-14.5); White Blood Cell Count 3.9 10^3/uL (4.8-10.8)
[2024-09-06 07:04] LABS: Glucose - Point of Care 288 mg/dl (70-99)
--- NOTE | 2024-09-06 08:11 | PN.DE.MGMTRT ---
Insulin Management
- -
09/06/2024: Diabetes Management Follow up
Patient admitted 09/03 with c/o nausea, dizziness, labored breathing; found to be in DKA. PMH: T2DM, Bipolar, Anxiety. Prior to admission was ordered Tresiba 28 units @ hs and Humalog 8 units TID with metformin 1000 BID. A1C on admission 15%, Cr 1.2,
eGFR >60.
Patient had not taken insulin for a 'few days'.
Patient awake, alert, oriented, siting up in bed, eating breakfast, offers no complaints, able to discuss diabetes care.
On admission glucose 462/505, GAP 27, was managed on DKA protocol and transitioned off yesterday to SQ insulin
Dinner time glucose was 219, received 8 units NovoLog w/additional corrective insulin. HS glucose was 235, received Lantus 30 units @ HS, FBG this AM 288.
Will increase NovoLog to 10 units and Lantus to 34 units. Anticipate higher insulin requirement with A1C of 15%
Will cont to follow and make further insulin adjustments if needed.
Discussed importance of optimal glucose control with pt and instructed him to increase his home dose of Tresiba to 34 units and Lispro to 10 units
Diabetes History
- -
Type of Diabetes: 2 requiring insulin
Pre-Admission Diabetes Regimen
09/05/24 09/05/24 09/05/24
07:57 12:00 15:59
Creatinine 1.0 0.9 Cancelled
09/05/24 09/05/24
19:59 23:59
Creatinine Cancelled Cancelled
Lab Results
Hemoglobin A1c 15.0 % (4.0-5.6) H 09/04/24 04:12
Insulin Pump Settings
IP Diabetes Regimen
09/05/24 09/05/24 09/05/24
07:57 09:07 10:18
Glucose 198 H
POC Glucose 189 H 215 H
09/05/24 09/05/24 09/05/24
10:58 12:00 13:07
Glucose 219 H
POC Glucose 237 H 216 H 229 H
09/05/24 09/05/24 09/05/24
14:01 15:00 15:59
Glucose Cancelled
POC Glucose 207 H 216 H
09/05/24 09/05/24 09/05/24
16:56 19:59 21:41
Glucose Cancelled
POC Glucose 219 H 235 H
09/05/24 09/06/24
23:59 07:01
Glucose Cancelled
POC Glucose 288 H
Patient Education
[2024-09-06] MEDS: WELLBUTRIN XL (24 hour extended release) 300 MG PO (08:51)
[2024-09-06] MEDS: EFFEXOR XR 150 MG PO (08:51)
[2024-09-06] MEDS: ELIQUIS 5 MG PO ×2 (08:51→19:55)
[2024-09-06] MEDS: WELLBUTRIN XL (24 hour extended release) 150 MG PO (08:51)
[2024-09-06 09:11] LABS: Blood Urea Nitrogen 8 mg/dl (9-20); Calcium 8.3 mg/dl (8.4-10.2); Carbon Dioxide 13 mmol/L (22-30); Chloride 106 mmol/L (98-107); Estimated Creatinine Clearance > 125 ml/min; Glucose 265 mg/dl (70-99); Magnesium 2.1 mg/dl (1.6-2.3); Potassium 3.6 mmol/L (3.5-5.1); Sodium 133 mmol/L (135-145); eGFR > 60.00
[2024-09-06] MEDS: NOVOLOG FLEXPEN SC ×2 (10:06→10:50)
[2024-09-06] MEDS: NOVOLOG FLEXPEN 10 UNITS SC ×3 (10:43→17:38)
[2024-09-06] MEDS: NOVOLOG FLEXPEN-MODERATE RESISTANCE 5 UNITS SC (10:44)
[2024-09-06] MEDS: SODIUM BICARBONATE 510 MEQ IV ×2 (10:44)
--- NOTE | 2024-09-06 11:21 | W.PN.HOSP.TC ---
Today's Communication/Plan
-
see A/P
Assessment / Plan
Assessment / Plan
59-year-old male with past medical history of insulin-dependent diabetes, bipolar, anxiety, p/w abnormal blood sugar and breathing difficulty.
Patient is visiting [place] for a work conference. 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 On arrival he felt somewhat ill with malaise and nausea. He had decreased appetite so he decided not to take his insulin.
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
He noticed that he was having heavy breathing and he decided to come to the emergency department.
Anion gap was 27 with pH 6.8 with a pCO2 of 30 in the ED.
A/P:
# DKA due to missed insulin use
# heavy breathing POA likely Kussmaul breathing seen in severe metabolic acidosis
# IDDM
A1C 15 %
AGAP closed x2, insulin drip switched to SQ insulin
carb control diet started
Noted mild opening/increase of AGAP on 09/06 at 14, will attempt to treat without insulin drip
restarted Bicarb drip
Continue Aspart 10 units AC and Lantus 34 units HS
BMP Q6H for now
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
Of note, COVID/FLu negative
# Leukocytosis suspect reactive with DKA, resolved
No fever. Clear Xray. No localizing symptoms.
blood cx x2 negative, urine Cx neg, CT AP No acute pathology of the abdomen or pelvis identified.
Off empiric cefepime
# Bipolar MD
cont home meds
# GABRIELLA, prerenal with DKA, resolved
Cr 1.4 -> 0.7
# Mild Lipase elevation likely 2/2 DKA , resolved
# New onset AFIB RVR, spontaneously converted to NSR
weaned off Cardizem drip
Echo unrevealing: EF 60-65%. No significant valvular disease
Card recc minimum 1 month of OAC with Eliquis 5mg BID
Follow up with local marketing program manager in [place] to discuss continuing OAC and further work up
DVT PPX - now Eliquis
Code status - full code
DW RN
Offered pt to update , pt declined.
Total time spent 51 min
Anticipated Discharge: 24 - 48 hours
Subjective/Interval History
-
Date of Service: September 06, 2024
Objective Data
-
Labs:
Laboratory Results
09/06/24 09/06/24 09/06/24
04:27 07:50 12:00
WBC 3.9 L
Hgb 11.5 L
Hct 31.7 L
Plt Count 127 L D
Sodium 133 L Pending
Potassium 3.6 Pending
Chloride 106 Pending
Carbon Dioxide 13 L* Pending
BUN 8 L Pending
Creatinine 0.7 Pending
Glucose 265 H Pending
Calcium 8.3 L Pending
09/06/24
18:00
WBC
Hgb
Hct
Plt Count
Sodium Pending
Potassium Pending
Chloride Pending
Carbon Dioxide Pending
BUN Pending
Creatinine Pending
Glucose Pending
Calcium Pending
Vital Signs:
Vital Signs
Temp Pulse Resp BP Pulse Ox
36.7 C 92 16 112/67 98
09/06/24 06:55 09/06/24 06:55 09/06/24 06:55 09/06/24 06:55 09/06/24 06:55
I&O
09/05/24 09/06/24 09/07/24
06:59 06:59 06:59
Intake Total 4091.0 / 4244.0 2387.5 / 2387.5
Output Total 3425 / 3425 1100 / 1100
Balance 666.0 / 819.0 1287.5 / 1287.5
Review of Systems
-
All other systems: Reviewed and negative
Physical Exam
-
General: Well Developed, Well Nourished, No Apparent Distress, Comfortable and Conversant; Negative Respiratory Distress
HEENT: Normocephalic, Atraumatic, Nose Appears Normal and Ears Appear Normal; Negative Oxygen
Respiratory: Clear to Auscultation and Non Labored Respirations; Negative Accessory Resp Muscle Use
Cardiac: Regular Rhythm and S1/S2
GI: Soft, Nontender, Nondistended and Normal Bowel Sounds
Skin: Warm and Dry
Neuro: Awake, Alert, Oriented and AO x 3
Psych: Calm and Intact Judgement/Insight
Data Reviewed
-
Diagnostic Radiology: Report Reviewed by me
CT Scan: Report Reviewed by me
Labs: Labs Reviewed by me
--- NOTE | 2024-09-06 12:07 | PTOTSP ---
Pt reports feeling better today. He is able to get OOB and ambulate laps around hallway with steady gait and is able to climb steps with railing without difficulty. Goals exceeded. PT will sign off.
[2024-09-06 12:28] LABS: Blood Urea Nitrogen 9 mg/dl (9-20); Calcium 8.4 mg/dl (8.4-10.2); Carbon Dioxide 15 mmol/L (22-30); Chloride 104 mmol/L (98-107); Estimated Creatinine Clearance > 125 ml/min; Glucose 279 mg/dl (70-99); Potassium 3.5 mmol/L (3.5-5.1); Sodium 132 mmol/L (135-145); eGFR > 60.00
[2024-09-06 13:31] LABS: Glucose - Point of Care 247 mg/dl (70-99)
[2024-09-06] MEDS: NOVOLOG FLEXPEN-MODERATE RESISTANCE 3 UNITS SC ×2 (14:53→17:37)
--- NOTE | 2024-09-06 15:56 | CM ---
Chart reviewed
PT/OT recs - no needs
Plan - anticipate home no needs when medically ready
[2024-09-06 17:21] LABS: Glucose - Point of Care 246 mg/dl (70-99)
[2024-09-06 19:37] LABS: Blood Urea Nitrogen 10 mg/dl (9-20); Calcium 8.4 mg/dl (8.4-10.2); Carbon Dioxide 20 mmol/L (22-30); Chloride 103 mmol/L (98-107); Estimated Creatinine Clearance > 125 ml/min; Glucose 223 mg/dl (70-99); Potassium 3.4 mmol/L (3.5-5.1); Sodium 130 mmol/L (135-145); eGFR > 60.00
[2024-09-06] MEDS: RISPERDAL 0.5 MG PO (21:56)
[2024-09-06] MEDS: CRESTOR 10 MG PO (21:56)
[2024-09-06] MEDS: LANTUS 0.34 UNITS SC (21:57)
[2024-09-06 23:15] LABS: Glucose - Point of Care 153 mg/dl (70-99)
[2024-09-07 00:54] LABS: Blood Urea Nitrogen 12 mg/dl (9-20); Calcium 8.2 mg/dl (8.4-10.2); Carbon Dioxide 24 mmol/L (22-30); Chloride 102 mmol/L (98-107); Estimated Creatinine Clearance > 125 ml/min; Glucose 175 mg/dl (70-99); Potassium 3.1 mmol/L (3.5-5.1); Sodium 129 mmol/L (135-145); eGFR > 60.00
[2024-09-07] MEDS: KCL 270 MEQ IV (01:43)
[2024-09-07 03:00] VITALS: BP 140/28
[2024-09-07 07:02] LABS: Glucose - Point of Care 175 mg/dl (70-99)
[2024-09-07 07:56] VITALS: BP 111/73
[2024-09-07] MEDS: NOVOLOG FLEXPEN-MODERATE RESISTANCE 1 UNITS SC ×3 (08:18→17:32)
[2024-09-07] MEDS: NOVOLOG FLEXPEN 10 UNITS SC ×3 (08:19→17:33)
[2024-09-07] MEDS: EFFEXOR XR 150 MG PO (08:20)
[2024-09-07] MEDS: WELLBUTRIN XL (24 hour extended release) 150 MG PO (08:23)
[2024-09-07] MEDS: WELLBUTRIN XL (24 hour extended release) 300 MG PO (08:23)
[2024-09-07] MEDS: ELIQUIS 5 MG PO ×2 (08:23→20:34)
[2024-09-07 08:55] LABS: % Basophils 0.7 % (0-2); % Eosinophils 3.7 % (0-6); % Immature Granulocytes 0.2 % (0-0.5); % Lymphocytes 32.4 % (20.5-51.1); % Monocytes 15.2 % (1.7-9.3); % Neutrophils 47.8 % (42.2-75.2); Absolute Eosinophils 0.2 10^3/uL (0-0.7); Absolute Lymphocytes 1.4 10^3/uL (1.2-3.4); Absolute Monocytes 0.7 10^3/uL (0.1-0.6); Absolute Neutrophils 2.1 10^3/uL (1.4-6.5); Hematocrit 33.5 % (39.0-52.0); Hemoglobin 11.8 g/dL (13.0-18.0); Mean Corp Hgb Conc. 35.2 g/dL (33.0-37.0); Mean Corpuscular Hgb 30.6 pg (27.0-31.0); Mean Platelet Volume 11.1 fL (7.4-10.4); Nucleated Red Blood Cells % 0 % (-); Platelet Count 146 10^3/uL (130-400); Red Blood Cell Count 3.85 10^6/uL (4.70-6.10); Red Cell Dist. Width 13.2 % (11.5-14.5); White Blood Cell Count 4.3 10^3/uL (4.8-10.8)
[2024-09-07 09:03] LABS: Blood Urea Nitrogen 8 mg/dl (9-20); Calcium 8.5 mg/dl (8.4-10.2); Carbon Dioxide 24 mmol/L (22-30); Chloride 103 mmol/L (98-107); Estimated Creatinine Clearance > 125 ml/min; Glucose 185 mg/dl (70-99); Magnesium 1.9 mg/dl (1.6-2.3); Potassium 3.4 mmol/L (3.5-5.1); Sodium 135 mmol/L (135-145); eGFR > 60.00
--- NOTE | 2024-09-07 10:20 | W.PN.HOSP.TC ---
Today's Communication/Plan
-
A/P:
# DKA due to missed insulin use
# heavy breathing POA likely Kussmaul breathing seen in severe metabolic acidosis
# IDDM
A1C 15 %
AGAP closed today (after re-opening yesterday)
Continue SQ insulin
carb control diet started -pt tolerating diet today
restarted Bicarb drip restarted yesterday, off today, and anion gap is closed at 8 today
Continue Aspart 10 units AC and Lantus 34 units HS
BMP -repeat at 3 pm today and monitor glucose
KCl 40 meq PO now
DC likely tomorrow
Assessment / Plan
Assessment / Plan
59-year-old male with past medical history of insulin-dependent diabetes, bipolar, anxiety, p/w abnormal blood sugar and breathing difficulty.
Patient is visiting [place] for a work conference. He apparently arrived 2 days [employer]. On arrival he felt somewhat ill with malaise and nausea. He had decreased appetite so he decided not to take his insulin.
He has not taken his insulin since 2 days [employer] due to ongoing malaise.
He noticed that he was having heavy breathing and he decided to come to the emergency department.
Anion gap was 27 with pH 6.8 with a pCO2 of 30 in the ED.
A/P:
# DKA due to missed insulin use
# heavy breathing POA likely Kussmaul breathing seen in severe metabolic acidosis
# IDDM
A1C 15 %
AGAP closed x2, insulin drip switched to SQ insulin
carb control diet started
Noted mild opening/increase of AGAP on 09/06 at 14, will attempt to treat without insulin drip
restarted Bicarb drip yesterday, off today, and anion gap is closed at 8 today
Continue Aspart 10 units AC and Lantus 34 units HS
BMP -repeat at 3 pm
DM MANAGER NEW PRODUCT on board
Of note, COVID/FLu negative
#Hypokalemia
-K borderline at 3.5- will give KCl PO today, pt tolerating orals well
# Leukocytosis suspect reactive with DKA, resolved
No fever. Clear Xray. No localizing symptoms.
blood cx x2 negative, urine Cx neg, CT AP No acute pathology of the abdomen or pelvis identified.
Off empiric cefepime
# Bipolar MD
cont home meds
# GABRIELLA, prerenal with DKA, resolved
Cr 1.4 -> 0.7 - > 0.7
# Mild Lipase elevation likely 2/2 DKA , resolved
# New onset AFIB RVR, spontaneously converted to NSR
weaned off Cardizem drip
Echo unrevealing: EF 60-65%. No significant valvular disease
Card recc minimum 1 month of OAC with Eliquis 5mg BID
Follow up with local glass production machine operator in [place] to discuss continuing OAC and further work up
DVT PPX - now Eliquis
Code status - full code
Offered pt to update , pt declined.
Total time spent 35 min
Anticipated Discharge: Within 24 hours
Subjective/Interval History
-
Date of Service: September 07, 2024
Anion Gap 8
He is tolerating orals, feeling well, no n/v/d, no CP, no SOB, no palpitations.
He is asking if Metformin can be restarted upon discharge.
Objective Data
-
Labs:
Laboratory Results
09/07/24 09/07/24
00:26 08:00
WBC 4.3 L
Hgb 11.8 L
Hct 33.5 L
Plt Count 146
Sodium 129 L 135
Potassium 3.1 L 3.4 L
Chloride 102 103
Carbon Dioxide 24 24
BUN 12 8 L
Creatinine 0.6 L 0.7
Glucose 175 H 185 H
Calcium 8.2 L 8.5
Vital Signs:
Vital Signs
Temp Pulse Resp BP Pulse Ox
98.0 F 85 18 111/73 95
09/07/24 07:56 09/07/24 07:56 09/07/24 07:56 09/07/24 07:56 09/07/24 07:56
I&O
09/06/24 09/07/24 09/08/24
06:59 06:59 06:59
Intake Total 2387.5 / 2387.5 4469 / 4469
Output Total 1100 / 1100
Balance 1287.5 / 1287.5 4469 / 4469
Review of Systems
-
All other systems: Reviewed and negative (except as per Subjective)
Data Reviewed
-
Labs: Labs Reviewed by me and Discussed with Patient
[2024-09-07 11:37] LABS: Glucose - Point of Care 183 mg/dl (70-99)
[2024-09-07 11:44] VITALS: BP 136/70
[2024-09-07] MEDS: KCL 40 MEQ PO (12:04)
[2024-09-07 16:47] VITALS: BP 126/82
[2024-09-07 17:01] LABS: Glucose - Point of Care 194 mg/dl (70-99)
[2024-09-07 17:53] LABS: Blood Urea Nitrogen 13 mg/dl (9-20); Calcium 8.7 mg/dl (8.4-10.2); Carbon Dioxide 24 mmol/L (22-30); Chloride 101 mmol/L (98-107); Estimated Creatinine Clearance > 125 ml/min; Glucose 196 mg/dl (70-99); Potassium 3.7 mmol/L (3.5-5.1); Sodium 132 mmol/L (135-145); eGFR > 60.00
[2024-09-07 19:22] VITALS: BP 128/79
[2024-09-07 21:51] VITALS: BP 137/83
[2024-09-07] MEDS: CRESTOR 10 MG PO (21:54)
[2024-09-07] MEDS: RISPERDAL 0.5 MG PO (21:54)
[2024-09-07] MEDS: LANTUS 0.34 UNITS SC (21:54)
[2024-09-07 22:02] LABS: Glucose - Point of Care 199 mg/dl (70-99)
[2024-09-08 03:07] VITALS: BP 97/73
[2024-09-08 06:08] LABS: % Basophils 0.8 % (0-2); % Eosinophils 4.4 % (0-6); % Immature Granulocytes 0.2 % (0-0.5); % Lymphocytes 36.5 % (20.5-51.1); % Monocytes 13.9 % (1.7-9.3); % Neutrophils 44.2 % (42.2-75.2); Absolute Eosinophils 0.2 10^3/uL (0-0.7); Absolute Lymphocytes 1.7 10^3/uL (1.2-3.4); Absolute Monocytes 0.7 10^3/uL (0.1-0.6); Absolute Neutrophils 2.1 10^3/uL (1.4-6.5); Hematocrit 34.5 % (39.0-52.0); Hemoglobin 12.2 g/dL (13.0-18.0); Mean Corp Hgb Conc. 35.4 g/dL (33.0-37.0); Mean Corpuscular Hgb 30.9 pg (27.0-31.0); Mean Corpuscular Volume 87.3 fL (80.0-94.0); Mean Platelet Volume 11.3 fL (7.4-10.4); Nucleated Red Blood Cells % 0 % (-); Platelet Count 157 10^3/uL (130-400); Red Blood Cell Count 3.95 10^6/uL (4.70-6.10); Red Cell Dist. Width 12.8 % (11.5-14.5); White Blood Cell Count 4.7 10^3/uL (4.8-10.8)
[2024-09-08 06:19] LABS: Blood Urea Nitrogen 13 mg/dl (9-20); Calcium 8.7 mg/dl (8.4-10.2); Carbon Dioxide 25 mmol/L (22-30); Chloride 102 mmol/L (98-107); Estimated Creatinine Clearance > 125 ml/min; Glucose 176 mg/dl (70-99); Potassium 3.3 mmol/L (3.5-5.1); Sodium 136 mmol/L (135-145); eGFR > 60.00
[2024-09-08 07:21] VITALS: BP 108/71
[2024-09-08 07:24] LABS: Glucose - Point of Care 190 mg/dl (70-99)
[2024-09-08] MEDS: WELLBUTRIN XL (24 hour extended release) 150 MG PO (07:30)
[2024-09-08] MEDS: EFFEXOR XR 150 MG PO (07:30)
[2024-09-08] MEDS: WELLBUTRIN XL (24 hour extended release) 300 MG PO (07:30)
[2024-09-08] MEDS: NOVOLOG FLEXPEN-MODERATE RESISTANCE 1 UNITS SC ×2 (07:30→11:57)
[2024-09-08] MEDS: ELIQUIS 5 MG PO (07:30)
[2024-09-08] MEDS: NOVOLOG FLEXPEN 10 UNITS SC ×2 (07:31→11:56)
[2024-09-08 11:26] VITALS: BP 121/82
[2024-09-08 11:53] LABS: Glucose - Point of Care 185 mg/dl (70-99)
--- NOTE | 2024-09-08 13:58 | W.PN.HOSP.TC ---
Today's Communication/Plan
-
Give oral K then discharge home.
Assessment / Plan
Assessment / Plan
59-year-old male with past medical history of insulin-dependent diabetes, bipolar, anxiety, p/w abnormal blood sugar and breathing difficulty.
Patient was visiting [place] for a work conference. He arrived 2 days [employer]. On arrival he felt somewhat ill with malaise and nausea. He had decreased appetite so he decided not to take his insulin.
He has not taken his insulin since 2 days [employer] due to ongoing malaise. He noticed that he was having heavy breathing and he decided to come to the emergency department.
Anion gap was 27 with pH 6.8 with a pCO2 of 30 in the ED.
A/P:
# DKA due to missed insulin use - resolved
# heavy breathing POA likely Kussmaul breathing seen in severe metabolic acidosis
# IDDM
A1C 15 %
AGAP closed x2, insulin drip switched to SQ insulin
carb control diet started and BS are in reasonable range given overall picture
DM PRODUCT EXPERT on board
Of note, COVID/FLu negative
#Hypokalemia
-K borderline at 3.3- will give KCl PO today, pt tolerating orals well
Will follow up BMP with PCP as soon as he gets back to his home town
# Leukocytosis suspect reactive with DKA, resolved
No fever. Clear Xray. No localizing symptoms.
blood cx x2 negative, urine Cx neg, CT AP No acute pathology of the abdomen or pelvis identified.
Off empiric cefepime
# Bipolar MD
cont home meds
# GABRIELLA, prerenal with DKA, resolved
Cr 1.4 -> 0.7 - > 0.7
# Mild Lipase elevation likely 2/2 DKA , resolved
# New onset AFIB RVR, spontaneously converted to NSR
weaned off Cardizem drip
Echo unrevealing: EF 60-65%. No significant valvular disease
Card recc minimum 1 month of OAC with Eliquis 5mg BID
Follow up with local camp head counselor in [place] to discuss continuing OAC and further work up
DVT PPX - now Eliquis
Code status - full code
Patient requested to go home. He has capacity to make this choice.
He appears stable and will follow up with his PCP immediately upon returning home.
He has insulin in his hotel room.
Total time spent 40 min
Anticipated Discharge: Today
Subjective/Interval History
-
Date of Service: September 08, 2024
Feels well. Wants to go home.
Objective Data
-
Labs:
Laboratory Results
09/08/24
04:14
WBC 4.7 L
Hgb 12.2 L
Hct 34.5 L
Plt Count 157
Sodium 136
Potassium 3.3 L
Chloride 102
Carbon Dioxide 25
BUN 13
Creatinine 0.7
Glucose 176 H
Calcium 8.7
Vital Signs:
Vital Signs
Temp Pulse Resp BP Pulse Ox
98.2 F 91 20 121/82 98
09/08/24 11:26 09/08/24 11:26 09/08/24 11:26 09/08/24 11:26 09/08/24 11:26
I&O
09/07/24 09/08/24 09/09/24
06:59 06:59 06:59
Intake Total 4469 / 4469 1200 / 1200
Balance 4469 / 4469 1200 / 1200
Review of Systems
-
History Source: Patient
All other systems: Reviewed and negative
Physical Exam
-
General: Well Developed, Well Nourished, No Apparent Distress and Comfortable
HEENT: Normocephalic, Atraumatic and Moist Mucous Membranes
Respiratory: Clear to Auscultation
Cardiac: Regular Rhythm and S1/S2
GI: Soft, Nontender and Nondistended
Musculoskeletal: No Clubbing, No Cyanosis and No Edema
Skin: Warm and Dry
Neuro: Awake, Alert, Oriented and AO x 3
Psych: Calm
Data Reviewed
-
Labs: Labs Reviewed by me
--- NOTE | 2024-09-08 14:10 | W.DCSUMMARY ---
Discharge Summary
Discharge Data
Date of Admission: 09/03/24
Date of Discharge: 09/08/24
-
Pending Results: No
Hospital Course
59-year-old male with past medical history of insulin-dependent diabetes, bipolar, anxiety, p/w abnormal blood sugar and breathing difficulty.
Patient was visiting [place] for a work conference. He arrived 2 days [employer]. On arrival he felt somewhat ill with malaise and nausea. He had decreased appetite so he decided not to take his insulin.
He has not taken his insulin since 2 days [employer] due to ongoing malaise. He noticed that he was having heavy breathing and he decided to come to the emergency department. His Anion gap was 27 with pH 6.8 with a pCO2 of 30 in the ED.
Discharge diagnosis:
1. DKA due to missed insulin use - resolved
2. heavy breathing POA likely Kussmaul breathing seen in severe metabolic acidosis
3. IDDM
4. A1C 15 %
5. Hypokalemia
6. Leukocytosis
7. Bipolar MD
8. GABRIELLA, prerenal with DKA
9. Mild Lipase elevation
10. New onset AFIB RVR
Hospital course:
HisAGAP closed x2, insulin drip switched to SQ insulin
He was placed on a carb control diet and BS are in reasonable range given overall picture
DM STUDENT SERVICES COUNSELOR has been on board
Of note, COVID/FLu negative
His potassium trended low throughout his stay.- will give KCl PO today, pt tolerating orals well
Will follow up BMP with PCP as soon as he gets back to his home town
The leukacytosis, is suspected to be reactive with DKA, which has now resolved.
No fever. Clear Xray. No localizing symptoms.
blood cx x2 negative, urine Cx neg, CT AP No acute pathology of the abdomen or pelvis identified.
Off empiric cefepime
For his bipolar d/o we recommend that he cont home meds
He GABRIELLA at presentation, likely prerenal with DKA, which has resolved.
Cr 1.4 -> 0.7 - > 0.7
He had a Mild Lipase elevation likely 2/2 DKA , which has resolved.
He had New onset AFIB RVR, spontaneously converted to NSR
He weaned off Cardizem drip.
An Echo was unrevealing: EF 60-65%, without significant valvular disease.
Card rec minimum 1 month of OAC with Eliquis 5mg BID
Follow up with local button maker and installer in [place] to discuss continuing OAC and further work up
Discharge Plan
-
Patient Disposition: Home (Routine Discharge)
Discharge Diagnosis/Procedures: Diabetic ketoacidosis
Diet: Diabetic, Carb Controlled
Activity: As tolerated
Driving Restrictions: As prior to admission
Bathing Restrictions: None
Blood Work: BMP NACHO after arriving home
Referrals:
UNKNOWN - PT DOES,NOT KNOW [Family Provider] -
Additional Discharge Medication Instructions: Check BMP with your PCP immediately upon returning home. Consider obtaining CGM.
Prescriptions:
New
rosuvastatin 10 mg Tablet
10 mg PO HS Qty: 30 0RF
Eliquis 5 mg Tablet
5 mg PO BID Qty: 30 0RF
Continued
venlafaxine 150 mg Capsule,Extended Release 24hr
150 mg PO DAILY
metformin 1,000 mg Tablet
1,000 mg PO BID@0800,1700
risperidone 0.5 mg Tablet
0.5 mg PO HS
insulin lispro 100 unit/mL Insulin Pen
8 unit SC BID@0800,1700
bupropion HCl 150 mg Tablet Extended Release 24 Hr
150 mg PO DAILY
insulin degludec [Tresiba FlexTouch U-200] 200 unit/mL (3 mL) Insulin Pen
28 unit SC HS
therapeutic multivitamin Tablet
1 tab PO DAILY
acetaminophen 500 mg Tablet
500 mg PO DAILYPRN PRN (Reason: mild pain)
bupropion HCl 300 mg Tablet Extended Release 24 Hr
300 mg PO DAILY
Fish Oil 100-160-1,000 mg Capsule
2 cap PO DAILY
Discontinued
rosuvastatin 10 mg Tablet
10 mg PO HS
Discharge Orders:
Discharge Patient (As Directed); Ordered 09/08/24
Ordered By: Adonay Giraldo
Discharge Date and Time
Print Language: MONGOLIAN
[2024-09-08] MEDS: KLOR-CON 20 MEQ PO (14:20)
== END 2024-09-08 14:40 | disposition home or self-care (01) | DRG 638 ==
LOC: 2 SOUTH 23:03
PROVIDERS: Emergency Medicine; Internal Medicine; Nurse Practitioner Primary Care; ADMITTING PHYSICIAN Internal Medicine; ATTENDING PHYSICIAN Internal Medicine; CONSULT PHYSICIAN Internal Medicine Critical Care Medicine; EMERGENCY PHYSICIAN Emergency Medicine; OTHER PHYSICIAN Nuclear Medicine Nuclear Cardiology
DX: E11.10 Type 2 diabetes mellitus with ketoacidosis without coma (principal); E87.1 Hypo-osmolality and hyponatremia; N17.9 Acute kidney failure, unspecified; F31.9 Bipolar disorder, unspecified; T38.3X6A Underdosing of insulin and oral hypoglycemic [antidiabetic] drugs, initial encounter; I10 Essential (primary) hypertension; I48.0 Paroxysmal atrial fibrillation; E83.51 Hypocalcemia; E78.5 Hyperlipidemia, unspecified; E87.6 Hypokalemia; Z79.4 Long term (current) use of insulin; Z88.0 Allergy status to penicillin; Z79.84 Long term (current) use of oral hypoglycemic drugs; Z79.899 Other long term (current) drug therapy; Z91.128 Patient's intentional underdosing of medication regimen for other reason; Z11.52 Encounter for screening for COVID-19
CPT/HCPCS: 71045; 74177; 80048; 80053; 80061; 81003; 81015; 82010; 82248; 82805; 82962; 83036; 83690; 83735; 84443; 84484; 85025; 85027; 85610; 85730; 87040; 87070; 87086; 87449; 87502; 87811; 93005; 93306; 96361; 96372; 96374; 97163; 97167; 97530; 97535; 99291; Q9967